=== PATIENT | female | born 1990 | race Caucasian/White ===

== ENCOUNTER 2016-12-27 16:44 | Emergency (ER) | payer OTHER ==
[~2016-12-27] VITALS: Ht 167.6 cm; Wt 74.8 kg
[~2016-12-27 16:44] MED LIST: BACTRIM DS 8001 TA1 PO; FLAGYL500 MG PO; FLINTSTONES1 CTB OR; MACROBID 100MG100 MG PO; MOTRIN400 MG PO; NAPROSYN 500MG500 MG PO; NOMEDS *; PERCOCET 5/3251 EACH PO; TUMS 400MG TAB400 MG OR; TYLENOL ES500 MG OR
[2016-12-27] MEDS ORDERED: KEFLEX 500MG.500 MG PO (17:30)
[2016-12-27] MEDS ORDERED: PREDNISONE10 M1 PO (17:31)
--- NOTE | 2016-12-27 17:32 | [facility]gent [facility] Report ---
History of Present Issue Date/Time Seen by Provider 12/27/16 1712 Visit Reason Pt arrived:Walked Presenting Problem:PT C/O SORE THROAT, SIMMS, AND BILATERAL EAR PAIN Location if Accident: Onset of symptoms date/time:/ or onset unknown for:MEDICAL HX UNKNOWN Have you (or family members/close friends) recently traveled outside the [place]? N If Yes, where/when: Have you had exposure to infectious disease within the past month? TB? Other? Specify: Patient presents with c/o sore throat, headache and chills that started 3-4 days ago. Denies recent exposure to known ill persons. Has been taking ibuprofen without relief. Hx: recurrent strep throat and VSD. States that she gets strep throat often but usually tests negative; the ENT doctor does not want to remove her tonsils due to the VSD. Her symptoms are the same this time as they usually are. Source patient Exam Limitations no limitations ALLERGIES Coded Allergies: latex (Intermediate, I-RASH 02/14/15) Penicillins (02/14/15) cefaclor (From [facility]) (02/14/15) History Medical History General CAD? No Angina: Yes [place]: No Hypertension? No Hyperlipidemia? No CHF? No DVT? No PE? No COPD? No Asthma? No Anemia? No GERD? No Gastric ulcers? No GI Bleed? No Hernia? No Thyroid Problems? No Hypothyroidism? No CVA? No Seizures? No Diabetes? No Renal Insuffiency? No UTI? No Stones? No BPH? No GB Disease: No Nephritic Syndrome? No Asplenia? No Hepatitis? No Sickle Cell Disease? No Arthritis? No Migraines? No Cataracts? No Glaucoma? No MRSA? No HIV? No TB? No Anxiety? No Depression? No Cancer? No More? No Immunization HX DT/Tetanus 1-4 YRS Flu NEVER Pneumonia NEVER Surgical Hx Previous Surgery?Y WISDOM TEETH TUBAL Social History Smoking Hx Smoker: Never Smoker Tobacco: No Alcohol Alcohol: No Review of Systems All Other Systems Reviewed and Negative Constitutional chills, denies fever (not measured) Eyes denies drainage ENT ear pain (bilateral ear pressure), throat pain, throat swelling. denies: nose congestion. Respiratory denies cough, denies shortness of breath, denies stridor, denies wheezing Cardiovascular denies chest pain, denies palpitations Gastrointestinal denies abdominal pain, denies diarrhea, denies nausea, denies other Skin denies no symptoms reported Physical Exam Vital Signs Vital Signs Date Time Temp Pulse Resp B/P Pulse O2 O2 Flow FiO2 Ox Delivery Rate 12/27 1739 98.6 84 20 140/84 100 12/27 1738 98.6 84 20 140/84 100 12/27 1652 98.6 84 20 140/84 100 General Appearance normal appearance, WD/WN, no apparent distress, fatigued Eye Exam - bilateral eye normal exam, bilateral eye PERRL Ear, Nose, Throat bilateral TMs intact, dull andersen without drainage; pharynx moderately erythematous with tonsillar swelling 2+; scant amount of exudate noted Neck normal inspection, full range of motion, bilateral anterior cervical adenopathy Respiratory Status Yes: trachea midline, chest symmetrical. No: respiratory distress. Lung Sounds bilateral: normal breath sounds. Cardiovascular normal exam, regular rate/rhythm, no peripheral edema, murmur Neurologic alert, normal exam, no motor/sensory deficits, oriented x 3 Mental status normal mood/affect Skin intact, normal color, warm/dry Medical Decision Making LABS/Meds/Orders Pt receiving controlled substance in ED? No Results/Orders Laboratory Tests 12/27/16 1655: Group A Strep Screen NOT DETECTED Orders Procedure Date/time Status [facility] STREP SCREEN 12/27 1654 Complete Departure Departure Time of Disposition 172 Disposition DC Home or Self Care(routine) Clinical Impression Primary Impression: ST (sore throat) Condition STABLE Referrals Juan Ramon Cantrell MD (Family) Patient Instructions DI for Pharyngitis/Tonsillopharyngitis -- Child Additional Instructions Your rapid strep test is negative; due to your symptoms and clinical presentation you are being treated with an antibiotic. Discussed adverse effects of cephalexin. Increase fluids, salt water gargles, and consume soft foods. Do not share food, drinks or untensils with others; change toothbrush as directed. If symptoms persist or worsen follow-up with PCP for further evaluation. Patient verbalizes understanding. Discharge Counseling Counseled pt/family regarding diagnosis, test results, medications/RX, home care, follow up needs Prescriptions Current Visit Scripts CEPHALEXIN (Keflex 500MG Capsule) 500 MG PO BID #20 CAP take 1 capsule twice daily for 10 days Prednisone 10 MG PO DAILY #21 TAB take as directed for 6 days at 2040
[2016-12-27 17:39] VITALS: BP 140/84
--- OUTSIDE RECORDS SUMMARY | 2016-12-28 20:41 | External Medical Summary Rpt | CCD ---
Author Author , SELAM Organization [employer] Address Unknown Phone [email or web address] Care Team Providers Care Linux Network Systems Administrator Name Role Phone DANIA ALBARRAN, Unavailable Unavailable DANIA ALBARRAN [facility], Unavailable Unavailable [facility] NG MARISOL, NG Unavailable Unavailable MARISOL NG MARISOL, NG Unavailable Unavailable MARISOL CARLOTA NG J, Unavailable Unavailable CARLOTA NG [facility] Unavailable Unavailable [place], [facility] Unavailable Unavailable [facility], [facility] Unavailable Unavailable LAB, [facility] OF Unavailable Unavailable [facility] Unavailable Unavailable [facility] Unavailable [place] [place] MIRTA YASIR, Unavailable Unavailable MIRTA YASIR MIRTA YASIR, Unavailable Unavailable MIRTA YASIR FALLUJI POLLY, FALLUJI Unavailable Unavailable POLLY JOSE ANTONIO ALEKSANDR, JOSE ANTONIO Unavailable Unavailable ALEKSANDR HARPEL HUBERT, HARPEL Unavailable Unavailable HUBERT HARPEL HUBERT, HARPEL Unavailable Unavailable HUBERT HARPEL, JERRI R, Unavailable Unavailable HARPEL, JERRI R [facility], [facility] LEO PERRY, Unavailable Unavailable LEO PERRY [facility] Unavailable Unavailable [facility], [facility], Unavailable Unavailable [facility] AMALIA CRISOSTOMO, Unavailable Unavailable AMALIA CRISOSTOMO [facility] KAM RANGEL B, Unavailable Unavailable KAM RANGEL EMMETT P, Unavailable Unavailable VANI SEXTON MORAN WIL Unavailable Unavailable [facility], Unavailable Unavailable [facility] Unavailable Unavailable LAB, [facility] Unavailable Unavailable LAB, [facility]Y [facility] LAB BOB COVARRUBIAS, Unavailable Unavailable GUADALUPE MORALES JR, Unavailable Unavailable GUADALUPE POOL [facility] Unavailable Unavailable CLINIC, [facility] Unavailable Unavailable OF [place], [facility] OF Dilia GALARZA, BRENDA, Tru Unavailable Dilia Rice Purpose Continuity of Care Document - 03-28-2008 through 2016 Problems Code Diagnosis DOS Provider Status V242 ROUTINE 05-24-2011 PATHOLOGY & CYTOLOGY FOLLOW-UP LAB V7231 ROUTINE 05-24-2011 HERNANDEZ DAMON GYNECOLOGIC AL EXAMINATION 462 ACUTE 05-21-2011 MIRTA PHARYNGITIS YASIR 4660 ACUTE 05-21-2011 MIRTA BRONCHITIS YASIR V252 STERILIZATI 04-12-2011 [facility] ON ANESTH OF THE BLUE 650 NORMAL 04-11-2011 NG MARISOL DELIVERY 11610 OTH&UNS CRD 04-11-2011 HERNANDEZ MARISOL ENTANGL W/O COMPRS COMP L&D DELIV V270 OUTCOME OF 04-11-2011 HERNANDEZ MARISOL DELIVERY SINGLE LIVEBORN V221 SUPERVISION 04-09-2011 HERNANDEZ DAMON OF OTHER NORMAL 76661 THREATENED 03-29-2011 [facility] LABOR INC ANTEPARTUM 26121 OTHER 03-29-2011 HARPEL HUBERT THREATENED LABOR, ANTEPARTUM 89718 DECR 03-24-2011 HERNANDEZ MARISOL MOVMNTS MGMT MOTH ANTPRTM COND/COMP 73257 OTHER 03-14-2011 [facility]IF[facility] COMPLICATIO INC N ANTEPARTUM 7840 HEADACHE 03-14-2011 [facility] 5990 URINARY 01-18-2011 [facility] INFECTION LA SITE NOT SPECIFIED 591 HYDRONEPHRO 12-29-2010 [facility] SIS PHYSICIAN GROUP PCC 01171 HEMATURIA 12-29-2010 [facility] UNSPECIFIED PHYSICIAN GROUP PCC V2889 OTHER 12-29-2010 [facility] ASS SCREENING 7851 PALPITATION 12-13-2010 [facility] CLINIC V283 ENCOUNTER 12-06-2010 WOMEN' ROUTINE HEALTH SCREEN CLINIC OF MALFORMATIO [place] N ULTRASONIC 54714 CHEST PAIN 11-16-2010 [facility] UNSPECIFIED [facility] INC 7454 VENTRICULAR 11-12-2010 [facility] SEPTAL PHYSICIANS DEFECT GROUP 03904 SHORTNESS 11-12-2010 [facility] OF [facility] INC V2509 OT GENERAL 11-02-2008 [facility]OMEN'S HEALTH CNSL&ADVICE CLINIC OF OSITO GARCIA MANAGEMENT [place] [facility] 86301 MATERNAL 09-26-2008 WOMEN'S MENTAL D/O HEALTH CLINIC OF COND/COMPLI [place] CATION PLL 57019 TRANSIENT 09-11-2008 WOMEN'S HYPERTENSIO HEALTH N OF CLINIC OF [place] W/DELIVERY PLL 28416 FIRST-DEGRE 09-11-2008 WOMEN'S E PERINEAL HEALTH LACERATION CLINIC OF WITH [place] DELIVERY [facility] 62565 MILD OR 09-10-2008 WOMEN'S UNSPECIFIED HEALTH CLINIC OF PRE-ECLAMPS [place] IA PLL ANTEPARTUM 17871 POOR 09-06-2008 WOMEN'S GROWTH MGMT HEALTH MOTH CLINIC OF ANTPRTM [place] COND/COMP [facility] V220 SUPERVISION 08-31-2008 COMBINED OF NORMAL PHYSICIANS FIRST LAB 1123 CANDIDIASIS 07-26-2008 A Dwayne GUTIERREZ OF SKIN [facility] AND NAILS 08261 DIARRHEA 07-26-2008 A Dwayne GUTIERREZ MD [facility] 6929 CONTACT 07-12-2008 JUAN CARLOS, DERMATITIS& KAM B OTHER ECZEMA DUE UNSPEC CAUSE 39335 TOXIC 07-12-2008 JUAN CARLOS, EFFECT OF KAM B LATEX 98962 DYSFUNCTION 06-28-2008 Dilia MURILLO [facility] EUSTACHIAN TUBE 46825 MATERNAL 06-15-2008 [facility] DIAGNOSTICC CV ENTER DIS-COMPLI PC/P-UNS EOC 36025 MATERNAL 06-15-2008 [facility]ITAL [facility] V2389 SUPERVISION 06-15-2008 OF OTHER DIAGNOSTICC HIGH-RISK ENTER 49004 SPOTTING 06-08-2008 WOMEN'S COMP HEALTH CLINIC OF ANTEPARTUM [place] COND/COMP [facility] 6160 CERVICITIS 05-25-2008 PATHOLOGY & AND CY[place]Y [place]ERV[place] 20619 PAP SMER 05-25-2008 WOMEN'S CERV W/LW HEALTH GRADE CLINIC OF SQUAMOUS [place] INTRAEPITH [facility] LES V222 05-25-2008 [facility]'S [facility] INCIDENTAL CLINIC OF [place] [facility] 72190 PLANTAR 05-24-2008 Dilia MACDONALD MD PSC 3970 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[facility]US[facility] 4240 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 40290 OTH CURRENT 05-18-2008 [facility] MAT CONDS [facility]IF[facility]L [facility] E ELSW [facility] 16031 PREMATURE 05-18-2008 [facility] RUPTURE [facility] ANTEPARTUM 05769 MATERNAL 05-18-2008 [facility] HYPOTENSION [facility]OME [facility]P ANTEPARTUM 4619 ACUTE 05-16-2008 A Dwayne GUTIERREZ SINUSITIS, PSC UNSPECIFIED 616 INFLAMMATOR 04-06-2008 [facility] Y DISEASE [facility] CERVIX INC VAGINA AND VULVA 6259 UNSPEC 04-06-2008 [facility] W[facility] GENITAL ORGANS 56866 INFECTIONS 04-06-2008 [facility] OF [facility] GENITOURINA INC RY TRACT ANTEPARTUM 9224 CONTUSION 03-28-2008 A Dwayne GUTIERREZ OF GENITAL MD PSC ORGANS Medications Na ND Rx Da Fi Fi Am Da Di Ph RX Ph St me C No te ll ll ou ys ag ar # ys at rm s nt no ma ic us Or Da si cy ia de te s n re d HI 00 10 10 5 30 30 EA 24 CL Ac OM 03 -1 -[address] 53 AR ti ET 21 SI 41 KE ve RI 71 20 20 DE UM 10 11 11 DE 1 PH RE 20 AR K 0 MA J MG CY CA OF PS UL CY E NT HI AN A TE 51 10 10 3 20 3 EA 24 CL Ac RC 67 -0 -[address] 36 AR ti ON SI 54 KE ve AZ 30 20 20 DE OL 20 11 11 DE E 0 PH RE 0. AR K 8% MA J CY CR EA OF M CY NT HI AN A FL 00 09 09 1 1. 1 EA 24 CL Ac UC 17 -2 -[address] 17 AR ti ON 25 0- 0- 0 SI 15 KE ve AZ 41 20 20 DE OL 27 11 11 DE E 9 PH RE 15 AR K 0 MA J MG CY TA OF BL ET CY NT HI AN A FE 64 09 09 11 30 30 EA 23 CL Ac RR 37 -0 -[address] 96 AR ti OU 60 6- 6- 00 SI 08 KE ve S 80 20 20 DE [place] 91 11 11 DE LF 0 PH RE AT AR K E MA J 32 CY 5 MG OF TA CY BL NT ET HI AN A FL 59 08 08 00 35 5 EA 13 MC Ac UC 76 -1 -[address] 84 KE ti ON SI 62 AR ve AZ 02 20 20 DE E OL 90 09 09 JR E 1 PH 10 AR WI MA LL MG CY IA /M M L OF F [place] CY SP NT HI AN A [place] 60 08 08 00 12 24 EA [address] 43 -1 -[address] 80 SS ti AT 20 1- 7- 00 SI 89 ON ve IN 53 20 20 0 DE [address] 10 0 PH EP 0, AR HE 00 MA N 0 CY A UN IT OF /M CY L NT [place] HI SP AN A [place] 60 07 08 00 60 7 EA [address] 43 -2 -[address] 66 AR ti AT 20 9- 3- 00 SI 03 KE ve IN 53 20 20 DE 76 09 09 DE 10 0 PH RE 0, AR K 00 MA J 0 CY UN IT OF /M CY L NT [place] HI SP AN A FL 00 07 07 00 30 30 EA 13 CL Ac UO 78 -1 -[address] 49 AR ti XE 12 4- 0- 00 SI 07 KE ve TI 82 20 20 DE NE 30 09 09 DE 1 PH RE HC AR K L MA J 10 CY MG OF CY CA NT PS HI UL AN E A 00 06 07 00 20 4 EA 13 CL Ac 05 -3 -[address] 32 AR ti 44 0- 6- 00 SI 94 KE ve 65 20 20 DE 02 09 09 DE 9 PH RE AR K MA J CY OF CY NT HI AN A 49 06 07 00 40 8 EA 13 CL Ac 88 -3 -[address] 32 AR ti 40 0- 6- 00 SI 95 KE ve 77 20 20 DE 70 09 09 DE 1 PH RE AR K MA J CY OF CY NT HI AN A NI 00 05 06 00 20 10 EA 12 SIMMS Ac TR 18 -1 -[address] 77 RP ti OF 50 7- 4- 00 SI 42 EL ve UR 12 20 20 DE AN 20 09 09 GE TO 1 PH RA IN AR LD MA R MO CY NO -M OF CR CY NT 10 HI 0 AN MG A 00 05 06 00 20 4 EA 12 SIMMS Ac 05 -1 -[address] 77 RP ti 44 7- 4- 00 SI 43 EL ve 65 20 20 DE 02 09 09 GE 5 PH RA AR LD MA R CY OF CY NT HI AN A [place] 00 05 06 00 30 4 EA [address] 16 -2 -[address] 81 SH ti AT 80 0- 4- 00 SI 84 ER ve IN 05 20 20 DE 43 09 09 RI 10 0 PH CH 0, AR AR 00 MA D 0 CY UN IT OF /G CY M NT CR HI EA AN M A TE 51 03 03 00 20 3 EA 11 CL Ac RC 67 -1 -[address] 84 AR ti ON 21 00 SI 50 KE ve AZ 30 20 20 DE OL 20 09 09 DE E 0 PH RE 0. AR K 8% MA J CY CR EA OF M CY NT HI AN A AZ 00 03 03 00 6. 6 EA 11 CL Ac IT 09 -0 -[address] 70 AR ti HR 37 2- 2- 0 SI 23 KE ve OM 14 20 20 DE YC 61 09 09 DE IN 8 PH RE AR K 25 MA J 0 CY MG OF TA CY BL NT ET HI AN A 65 02 02 00 30 30 EA 11 CL Ac 16 -1 -[address] 43 AR ti 20 1 6- 00 SI 71 KE ve 40 20 20 DE 61 09 09 DE 1 PH RE AR K MA J CY OF CY NT HI AN A 64 02 02 00 5. 1 EA 11 CL Ac 01 -1 -[address] 43 AR ti 10 1- 6- 9 SI 70 KE ve 00 20 20 DE 10 09 09 DE 8 PH RE AR K MA J CY OF CY NT HI AN A Procedures Procedure DOS Code Location Performer Comment CYTP C/V 21551 PATHOLOGY PICKLESIM AUTO THIN 2 & ER JR MARCI LYR CYTOLOGY PREPJ SCR LAB MNL RESCR PHYS IAADIADOO 68459 MIRTA MIRTA 2 YASIR YASIR INFLUENZA ANES IPER 16411 [facility] JOSE ANTONIO LWR ABD 2 ANESTH ALEKSANDR W/LAPS OF THE TUBAL BLUE LIGATION/ TRANSECT LIG/TRNSX 70622 HERNANDEZ Yuan FLP 2 MARISOL MARISOL TUBE ABDL/VAG POSTPARTU M SPX OTH 6639 [facility] BILATERAL 2 [facility] INC INC DESTRUC/O CCLUSION FALLOPIAN TUBES VAGINAL 41478 HERNANDEZ NG DELIVERY 2 MARISOL MARISOL ONLY W/POSTPAR DAYAN CARE OTHER 7359 [facility] MANUALLY 2 [facility] ASSISTED INC INC DELIVERY NEURAXIAL 93446 [facility] [place] MARLA LABOR 2 ANESTH ANALG/ANE OF THE S PLND BLUE VAGINAL DELIVERY CULTURE 98513 [facility] BACTERIAL 2 [facility] INC INC QUANTTATI VE COLONY COUNT URINE CULTURE 92619 [facility] BCT 2 [facility] ISOL&PRSM INC INC PTV ID ISOLATE EA URINE OBSERVATI 91846 KANDICE WOODSON ON/INPATI 2 [facility] 55 MINUTES SUSCEPTIB 86110 [facility] LTY STDY 2 [facility] ANTIMICRB INC INC IAL MICRO/AGA R DILUTJ URNLS DIP 89946 [facility] 2 [facility] STICK/TAB INC INC LET REAGENT AUTO MICROSCOP Y 44558 [facility] NONSTRESS 2 [facility] TEST INC INC 28173 [facility] NONSTRESS 2 [facility] TEST INC INC URNLS DIP 66801 [facility] K[facility]UR 2 [facility] STICK/TAB INC [place] [address] [facility] INFUSION 2 [facility] HYDRATION INC INC INITIAL 31 MIN-1 HOUR INJECTION J2405 [facility] 2 [facility] ONDANSETR INC INC ON HCL PER 1 MG NONINVASI 46561 [facility] VE 2 [facility] EAR/PULSE INC INC OXIMETRY SINGLE DETER THERAPEUT 81480 [facility] IC 2 [facility] INJECTION INC INC IV PUSH EACH NEW DRUG 11519 HERNANDEZ NG BIOPHYSIC 2 MARISOL [facility] AL PROFILE W/O NON-STRES S TESTING DOPPLER 35865 NG NG VELOCIMET 2 MARISOL MARISOL RY UMBILICAL ARTERY [place] PREG 48946 NG NG UTERUS 2 MARISOL MAR[facility] REAL TIME W/IMAGE DCMTN TRANSVAG 94311 NG NG NONSTRESS 2 MARISOL MARISOL TEST 08954 NG NG NONSTRESS 2 MARISOL MAR[facility]OL TEST DOPPLER 19205 NG NG VELOCIMET 2 MARISOL MARISOL RY UMBILICAL ARTERY US PREG 57553 NG NG UTERUS 2 MARISOL MARISOL REAL TIME W/IMAGE DCMTN TRANSVAG CUL BACT 42965 COMBINED COMBINED XCPT 2 PHYSICIAN PHYSICIAN URINE S LA S LA BLOOD/STO OL AEROBIC ISOL 69792 HERNANDEZ NG BIOPHYSIC 2 MAR[facility] AL PROFILE W/O NON-STRES S TESTING 95857 HERNANDEZ NG NONSTRESS 1 [facility] TEST FIBRIN 11273 [facility] DGRADJ 1 [facility] PRODUCTS INC INC D-DIMER QUAL/SEMI TOM 26523 [facility] NONSTRESS 1 [facility] TEST INC INC URNLS DIP 96112 [facility] 1 [facility] STICK/TAB INC INC LET REAGENT AUTO MICROSCOP Y FIBRINOGE 12430 [facility] N 1 [facility] ACTIVITY INC INC PROTHROMB 61730 [facility] IN TIME 1 [facility] INC INC BLOOD 42402 [facility]INCENT PENAON COUNT 1 [facility] COMPLETE INC INC AUTO&AUTO DIFRNTL WBC TRANSFERA 44465 [facility] SE 1 [facility] ASPARTATE INC INC AMINO AST SGOT TRANSFERA 90321 VINCENT VINCENT SE 1 [facility] ALANINE INC INC AMINO ALT SGPT OBSERVATI 48401 JERRI WOODSON ON/INPATI 1 KANDICE [facility] CARE 55 MINUTES BASIC 64274 VINCENT VINCENT METABOLIC 1 [facility] PANEL INC INC CALCIUM TOTAL THROMBOPL 92185 [facility] ASTIN 1 [facility] TIME INC INC PARTIAL PLASMA/[place] [address] [facility] BLOOD/URI 1 [facility] C ACID INC INC CULTURE 31449 [facility] BACTERIAL 1 [facility] INC INC QUANTTATI VE COLONY COUNT URINE DOPPLER 48682 HERNANDEZ NG VELOCIMET 1 MARISOL MAR[facility] RY UMBILICAL ARTERY 09596 HERNANDEZ NG BIOPHYSIC 1 [facility] AL PROFILE W/O NON-STRES S TESTING US PREG 66192 HERNANDEZ NG UTERUS 1 [facility] REAL TIME W/IMAGE DCMTN TRANSVAG US PREG 29758 NG NG UTERUS 1 MAR[facility] REAL TIME W/IMAGE DCMTN TRANSVAG 62457 NG NG BIOPHYSIC 1 [facility] AL PROFILE W/O NON-STRES S TESTING DOPPLER 93753 NG NG VELOCIMET 1 [facility] RY UMBILICAL ARTERY 60005 NG NG BIOPHYSIC 1 [facility] AL PROFILE W/O NON-STRES S TESTING US PREG 73383 NG NG UTERUS 1 [facility] REAL TIME W/IMAGE DCMTN TRANSVAG 30475 NG NG BIOPHYSIC 1 [facility] AL PROFILE W/O NON-STRES S TESTING US PREG 17058 NG NG UTERUS 1 [facility] REAL TIME W/IMAGE DCMTN TRANSVAG DOPPLER 10430 NG NG VELOCIMET 1 [facility] RY UMBILICAL ARTERY DOPPLER 69181 NG NG VELOCIMET 1 MAR[facility] MAR[place] RY UMBILICAL ARTERY US PREG 95097 NG NG UTERUS 1 [facility] REAL TIME W/IMAGE DCMTN TRANSVAG FTL 58272 [facility] FIBRONECT 1 [facility] IN INC INC CERVICOVA G SECRETION S SEMI-TOM 14121 NG NG BIOPHYSIC 1 MAR[facility] AL PROFILE W/O NON-STRES S TESTING [place] PREG 02781 WOMEN'S NG UTERUS 1 [facility] REAL TIME CLINIC OF W/IMAGE [place] DCMTN TRANSVAG 44820 WOMEN'S NG BIOPHYSIC 1 [facility] AL CLINIC OF PROFILE [place] NON-STRES S TESTING DOPPLER 74119 WOMEN'S NG VELOCIMET 1 [facility] RY CLINIC OF UMBILICAL [place] ARTERY DOPPLER 24523 NG NG VELOCIMET 1 [facility] RY UMBILICAL ARTERY 00182 NG NG BIOPHYSIC 1 [facility] AL PROFILE W/O NON-STRES S TESTING US PREG 51333 NG NG UTERUS 1 [facility] REAL TIME W/IMAGE DCMTN TRANSVAG GLUCOSE 92256 HERNANDEZ NG TOLERANCE 1 [facility] TEST GTT 3 SPECIMENS CULTURE 76584 COMBINED COMBINED BACTERIAL 1 PHYSICIAN PHYSICIAN S LA S LA QUANTTATI VE COLONY COUNT URINE DOPPLER 14051 HERNANDEZ NG VELOCIMET 1 [facility] RY UMBILICAL ARTERY US PREG 34579 HERNANDEZ NG UTERUS 1 [facility] REAL TIME W/IMAGE DCMTN TRANSVAG 13003 HERNANDEZ NG BIOPHYSIC 1 [facility] AL PROFILE NON-STRES S TESTING US PREG 18795 WOMEN'S HERNANDEZ UTERUS 1 [facility] REAL TIME CLINIC OF W/IMAGE [place] DCMTN TRANSVAG 03992 WOMEN'S HERNANDEZ NONSTRESS 1 [facility] TEST CLINIC OF [place] US PREG 57590 WOMEN'S HERNANDEZ UTERUS 1 [facility] REAL TIME CLINIC OF W/IMAGE [place] DCMTN TRANSVAG THERAPEUT 60093 [facility] IC 1 [facility] PROPHYLAC INC INC TIC/DX INJECTION SUBQ/IM 69988 [facility] NONSTRESS 1 [facility] TEST INC INC URNLS DIP 97301 [facility] 1 [facility] STICK/TAB INC INC LET REAGENT AUTO MICROSCOP Y FTL 08043 [facility] FIBRONECT 1 [facility] IN INC INC CERVICOVA G SECRETION S SEMI-TOM OBSERVATI 43423 [facility] HARPEL ON/INPATI 1 PHYSICIAN [facility] PCC C[place] [address] [place] [address] VINCENT VINCENT 1 [facility] UTERUS INC INC LIMITED 1/> [place] [address] [facility] RETROPERI 1 [facility] TONEAL INC INC REAL TIME W/IMAGE COMPLETE ECG 53281 [facility] ROUTINE 1 ROSENDO MATIAS ECG CARDIOLOG W/LEAST Y CLINIC 12 LDS W/I&R CUL BACT 67474 COMBINED COMBINED XCPT 1 PHYSICIAN PHYSICIAN URINE S LA S LA BLOOD/STO OL AEROBIC ISOL US PREG 13977 [facility]OMEN'S HERNANDEZ UTERUS 1 [facility] AFTER 1ST CLINIC OF TRIMEST [place] GESTATION ECHO 57968 [facility] TTHRC R-T 1 [facility] 2D INC INC W/WOM-MOD E COMPL SPEC&COLR D XTRNL ECG 94691 [facility] & 48 HR 1 [facility] RECORDING INC INC INSERTION 82128 [facility]'S NG, 9 [facility] IM[facility] CL[facility] OF LE CONTRACEP [place] TIVE [facility] CAPSULES THERAPEUT 42923 WOMEN'S NG, IC 9 [facility] PROPHYLAC CLINIC OF TIC/DX INJECTION [place] SUBQ/IM [facility] ETONOGEST J7307 WOMEN'S NG, REL 9 [facility] CNTRACPT CLINIC OF IMPL SYS INCL IMPL [place] & SPL [facility] URINE 46443 [facility]EN'S NG, 9 [facility] TEST [facility]IN[facility] OF VISUAL COLOR [place] CMPRSN [facility] METHS CYTP C/V 02698 PATHOLOGY PATHOLOGY AUTO THIN 9 & & LYR CYTOLOGY CYTOLOGY PREPJ SCR LAB LAB MNL RESCR PHYS VAGINAL 39286 WOMEN'S NG, DELIVERY 9 [facility] ONLY CLINIC OF W/POSTPAR DAYAN CARE [place] [facility] REPAIR OF 7569 [facility] OTHER 9 [facility] CURRENT INC INC OBSTETRIC LACERATIO N NEURAXIAL 25898 [facility] 9 ANESTH SHERWIN F ANALG/ANE OF THE S PLND [place] VAGINAL DELIVERY INITIAL 88087 WOMEN'S NG, OBSERVATI 9 [facility] [place] CLINIC OF CARE/DAY 50 [place] [address] WOMEN'S NG, 9 [facility] UTERUS CLINIC OF LIMITED 1/> [place] FETUSES [facility] 34461 WOMEN'S HERNANDEZ, BIOPHYSIC 9 [facility] OF PROFILE W/O [place] NON-STRES [facility] S TESTING DOPPLER 77072 WOMEN'S HERNANDEZ, VELOCIMET 9 [facility] RY CLINIC OF UMBILICAL ARTERY [place] [facility] OBSERVATI 74197 BRET THOMPSON/INELISABETH 9 KANDICE [facility]ARE 55 MINUTES CULTURE 52716 [facility] BACTERIAL 9 [facility] INC INC QUANTTATI VE COLONY COUNT URINE URNLS DIP 56085 [facility] 9 [facility] STICK/TAB INC INC LET REAGENT [place] MICROSCOP Y 68750 [facility] NONSTRESS 9 [facility] TEST INC INC CUL BACT 20511 COMBINED COMBINED XCPT 9 PHYSICIAN PHYSICIAN URINE S LAB S LAB BLOOD/STO OL AEROBIC ISOL DOPPLER 34976 WOMEN'S HERNANDEZ, VELOCIMET 9 [facility] [place] [facility] RY [facility]IN[facility] OF UMBILICAL ARTERY [place] [facility] 57792 WOMEN'S HERNANDEZ, BIOPHYSIC 9 [facility] [place] [facility] AL CLINIC OF PROFILE W/O [place] NON-STRES [facility] S TESTING [place] PREG 13493 WOMEN'S HERNANDEZ, UTERUS 9 [facility] [place] [facility] REAL TIME CLINIC OF F/U TRNSABDL [place] PER FETUS [facility] OBSERVATI 19147 BRET THOMPSON/INELISABETH 9 [facility] 55 MINUTES URNLS DIP 88188 [facility]UR 9 [facility] STICK/TAB INC INC LET REAGENT AUTO MICROSCOP Y 71089 WOMEN'S NG, NONSTRESS 9 [facility] [place] [facility] TEST [facility]INIC OF [place] [facility] [address] WOMEN'S NG, NONSTRESS 9 [facility] [place] [facility] TEST CLINIC OF [place] [facility] SMR PRIM 58708 Dilia JUAREZ SRC WET 9 BRENDA Rice [facility] NFCT AGT CULTURE 00475 [facility] BACTERIAL 9 [facility] INC INC QUANTTATI VE COLONY COUNT URINE OBSERVATI 77448 BRET THOMPSON/INELISABETH 9 [facility] 55 MINUTES FTL 87749 [facility] FIBRONECT 9 [facility] IN INC INC CERVICOVA G SECRETION S SEMI-TOM 77482 [facility] NONSTRESS 9 [facility] TEST INC INC URNLS DIP 26312 [facility]UR 9 [facility] STICK/TAB INC INC LET REAGENT AUTO MICROSCOP Y 13956 WOMEN'S NG, BIOPHYSIC 9 [facility] [place] Yuan AL CLINIC OF PROFILE NON-STRES [place] S TESTING [facility] [place] 17049 WOMEN'S NG, UTERUS 9 [facility] [place] [facility] REAL TIME CLINIC OF F/U TRNSABDL [place] PER FETUS [facility] DOPPLER 88125 WOMEN'S NG, VELOCIMET 9 [facility] RY [facility] OF UMBILICAL ARTERY [facility] PERQ TSTS 27675 JUAN CARLOS RANGEL, 9 KAM B KAM B SEQL&INCR L RX/BIOLOG IC/VNM IMMT RXN GLUCOSE 81745 WOMEN'S NG, POST 9 [facility] [place] J GLUCOSE CLIN[facility] OF DOSE [facility] COLLECTIO 09848 WOMEN'S NG, N 9 [facility] [place] CAP[facility] OF BLOOD SPECIMEN [facility] GLUCOSE 39244 WOMEN'S NG, TOLERANCE [facility] TEST GTT [facility]IN[facility] 3 [facility]ENS [facility] ECHO 91457 [place], 9 DANIA Miguel CARDIOVAS DIAGNOSTI C W/WO CCENTER M-MODE RECORDING [place] PREG 96710 [place], UTERUS 9 DANIA Miguel REAL TIME DIAGNOSTI F/U CCENTER TRNSABDL PER [place]ET[place] PREG 50993 WOMEN'S NG, UTERUS [facility] J REAL TIME CLINIC OF F/U TRNSABDL [place] PER FETUS [facility] 09535 WOMEN'S NG, BIOPHYSIC 9 [facility] AL [facility]IN[facility] OF PROFILE W/O [place] NON-STRES [facility] S TESTING COLPOSCOP 58516 WOMEN'S NG, Y CERVIX [facility] UPPER/ADJ CLINIC OF ACENT VAGINA [facility] [place] [address] PATHOLOGY PATHOLOGY SURG 9 & & PATHOLOGY CYTOLOGY CYTOLOGY LAB LAB GROSS&SUGAR ROSCOPIC EXAM [place] PREG 97176 WOMEN'S NG, UTERUS [facility] AFTER 1ST CLINIC OF TRIMEST [place] [facility] [place] 42212 CENTRAL CENTRAL UTERUS 9 [facility]UD[facility]IST [facility] REAL TIME HOSP HOSP W/IMAGE DCMTN TRANSVAG [place] PREG 52809 [place], UTERUS 9 DANIA R W/DETAIL DIAGNOSTI CCENTER SHASTA 1ST GESTATION ECHO 39158 [facility] TTC R-T 9 ORTH, 2D CARDIOLOG AMALIA W/WOM-MOD Y E COMPL CONSULTAN SPEC&COLR T D SPHERE V2100 PRINCESS HERNANDEZNES, SINGLE 9 [facility] VISION PLANO +/- 4.00 PER LENS OPHTH 45317 PRINCESSDilia PERRY MEDICAL 9 [facility] A XM&EVAL COMPRE NEW PT 1/> VST RPR&REFIT 32069 PRINCESSDilia PERRY G 9 [facility] SPECTACLE S EXCEPT APHAKIA FRAMES V2020 PRINCESS PERRY, PURCHASES 9 [facility] [place] PREG 49542 WOMEN'S NG, UTERUS [facility] AFTER [facility]ST [facility] [place] [facility] ALPHA-FET 43158 [facility] K[facility] OPROTEIN 9 [facility] [place] [address] [facility] ESTRIOL 9 [facility] INC INC GONADOTRO 57577 [facility]UR PIN 9 [facility] CHORIONIC INC INC QUANTITAT RACHELL URNLS DIP 54459 [facility] KAUR 9 [facility] STICK/TAB INC INC LET REAGENT AUTO MICROSCOP Y IADNA 41492 [facility] NEISSERIA 9 [facility] INC INC GONORRHOE [place] 66268 VINAY DARSHAN, UTERUS 9 MEDICAL VANI Cox REAL TIME IMAGING W/IMAGE ASSOCIATE DCMTN S TRANSVAG IADNA 97819 [facility] K[facility]UR CHLAMYDIA 9 [facility] INC INC TRACHOMAT IS AMPLIFIED PROBE TQ Encounters Encounter Start End Date Code Location Performer Type Date OFFICE 95532 MIRTA MIRTA OUTPATIEN 2 2 [facility] 2 [facility] [place] 22988 HERNANDEZ JAIMESE OUTPATIEN 2 2 [facility] VIS[facility] 15 MINUTES OFFICE 82863 NG NG OUTPATIEN 2 2 [facility] 2 [facility] T OFFICE 58572 NG NG OUTPATIEN 1 1 [facility] T VISIT 15 MINUTES [facility] 1 1 [facility] T OFFICE 97560 [facility] MINUT[facility] OFFICE 02341 NG NG OUTPATIEN 1 1 [facility] V[facility]IT 5 MINUTES OFFICE 93223 [facility] [place] MIN[facility] OFFICE 12518 [facility] [place] MIN[facility] - 1 1 [facility] T OFFICE 95264 [facility] 1 [facility] [place] MIN[facility] 1 [facility] T OFFICE 43596 [facility] 15 [place] MIN[facility]ES OFFICE 90681 [facility] OUTPATIEN 1 1 ROSENDO MATIAS T VISIT CARDIOLOG 25 Y CLINIC MINUTES OFFICE 08806 [facility] 15 [place] MINUTES OFFICE 05120 [facility] 15 [place] MINUTES OFFICE 81650 [facility] 1 [facility] 15 [place] MINUTES [facility] 1 1 [facility] OFFICE 05798 [facility] CONSULTAT 1 1 PHYSICIAN POLLY BARAHONA NEW/[facility] PATIENT 60 MIN OFFICE 31971 [facility] 1 1 [facility] 15 [place] MINUTES OFFICE 33912 [facility] 1 1 [facility] 15 [place] MINUTES OFFICE 24017 [facility] 9 9 [facility] OF 25 MINUTES [facility] OFFICE 21824 [facility] 9 9 [facility] OF 15 MINUTES [facility]INCENT - 9 9 [facility]ENT - 9 9 [facility] OFFICE 16589 [facility] 9 9 [facility] OF 15 MINUTES [facility] OFFICE 04291 [facility], [facility] 9 9 [facility] OF 15 MINUTES [facility]INCENT - 9 9 [facility] OFFICE 95159 [facility], OUTPATIEN 9 9 [facility]IN[facility] OF 15 MINUTES [facility] VINCENT - 9 9 [facility] OFFICE 61161 [facility] OUTPATIEN 9 9 [facility] OF 15 MINUTES [facility] VINCENT - 9 9 [facility] OFFICE 45214 Dilia JUAREZ OUTPATIEN 9 9 BRENDA Rice T VISIT PSC 15 MINUTES OFFICE 26454 Dilia JUAREZPATIEN 9 9 BRENDA Metcalf VISIT PSC 15 MINUTES OFFICE 46302 [facility], [facility] 9 9 [facility] OF 15 MINUTES [facility] OFFICE 39575 JUAN CARLOS RANGEL, CONSULTAT 9 9 KAM B KAM B ION NEW/ESTAB PATIENT 60 MIN OFFICE 92746 [facility], [facility] 9 9 [facility] T [facility]IN[facility] OF 15 MINUTES [facility] OFFICE 20585 Dilia JUAREZ OUTPATIEN 9 9 BRENDA Metcalf VISIT PSC 15 MINUTES OFFICE 73743 [facility], [facility] 9 9 [facility] T [facility]IN[facility] OF 15 MINUTES [facility] OFFICE 90737 [facility], OUTPATIEN 9 9 [facility] T VISIT 5 CLINIC OF MINUTES [facility] - 9 9 [facility] OUTPATIEN [facility] VINCENT - 9 9 [facility] OFFICE 08597 Dilia JUAREZ OUTPATIEN 9 9 BRENDA Metcalf VISIT PSC 15 MINUTES [facility] - 9 9 [facility] T OFFICE 16859 Dilia JUAREZ OUTPATIEN 9 9 BRENDA Rice T VISIT PSC 15 MINUTES OFFICE 81455 [facility] OUT[facility] 9 9 [facility] OF 15 MINUTES [facility] OFFICE 23336 [facility] HERNANDE[facility] OUTPATIEN 9 9 [facility] OF 15 MINUTES [facility]INCENT - 9 9 [facility]PATI[facility] INC T OFFICE 94615 [facility] HERNANDE[facility] OUTPAT[facility]EN 9 9 [facility] T [facility] OF 15 MINUTES [facility] EMERGENCY 97513 VINCENT 9 9 [facility] DEPARTMEN INC T VISIT HIGH/URGE NT SEVERITY [facility] - 9 9 [facility] OUTPATI[facility] INC T OFFICE 70802 Dilia JUAREZ OUTPATIEN 9 9 BRENDA Rice T VISIT PSC 15 MINUTES
--- OUTSIDE RECORDS SUMMARY | 2016-12-28 20:41 | External Medical Summary Rpt | CCD ---
Author Author , SELAM Organization [employer] Address Unknown Phone [email or web address] Care Team Providers Care Microsoft Office Instructor Name Role Phone DANIA ALBARRAN, Unavailable Unavailable DANIA ALBARRAN [facility], Unavailable Unavailable [facility] NG MARISOL, NG Unavailable Unavailable MARISOL NG MARISOL, NG Unavailable Unavailable MARISOL [place] NG J, Unavailable Unavailable [place] NG [facility] Unavailable Unavailable [place], [facility] Unavailable Unavailable [place], [facility] Unavailable Unavailable LAB, [facility] OF [facility]available Unavailable [facility] Unavailable Unavailable [facility] Unavailable [place], [facility] [place] MIRTA YASIR, Unavailable Unavailable [...] INC LEO PERRY, Unavailable Unavailable LEO PERRY [facility] Unavailable Unavailable P[facility], [facility], Unavailable Unavailable [facility] AMALIA CRISOSTOMO, Unavailable Unavailable AMALIA CRISOSTOMO [facility] KAM RANGEL B, Unavailable Unavailable KAM RANGEL EMMETT P, Unavailable Unavailable VANI SEXTON MORAN WIL Unavailable Unavailable [facility], Unavailable Unavailable [facility] Unavailable Unavailable LAB, [facility] Unavailable Unavailable LAB, PATHOLOGY & CYTOLOGY LAB BOB COVARRUBIAS, Unavailable Unavailable GUADALUPE MORALES JR, Unavailable Unavailable GUADALUPE POOL [facility] Unavailable Unavailable CLINIC, [facility] Unavailable Unavailable OF [place], [facility] OF Dilia GALARZA, BRENDA, Tru Unavailable Dilia Rice Purpose Continuity of Care Document - 03-28-2008 through 2016 Problems Code Diagnosis DOS Provider Status V242 ROUTINE 05-24-2011 PATHOLOGY & CYTOLOGY FOLLOW-UP LAB V7231 ROUTINE 05-24-2011 HERNANDEZ DAMON GYNECOLOGIC AL EXAMINATION 462 ACUTE 05-21-2011 MIRTA PHARYNGITIS YASIR 4660 ACUTE 05-21-2011 MIRTA BRONCHITIS YASIR V252 STERILIZATI 04-12-2011 [facility] ON ANESTH OF THE BLUE 650 NORMAL 04-11-2011 NG MARISOL DELIVERY 81514 OTH&UNS CRD 04-11-2011 HERNANDEZ MARISOL ENTANGL W/O COMPRS COMP L&D DELIV V270 OUTCOME OF 04-11-2011 HERNANDEZ MARISOL DELIVERY SINGLE LIVEBORN V221 SUPERVISION 04-09-2011 HERNANDEZ DAMON OF OTHER NORMAL 78811 THREATENED 03-29-2011 [facility]URE [facility] LABOR INC ANTEPARTUM 26585 OTHER 03-29-2011 HARPEL HUBERT THREATENED LABOR, ANTEPARTUM 76508 DECR 03-24-2011 HERNANDEZ MARISOL MOVMNTS MGMT MOTH ANTPRTM COND/COMP 84996 OTHER 03-14-2011 [facility] SPECIFED [facility] COMPLICATIO INC N ANTEPARTUM 7840 HEADACHE 03-14-2011 [facility] INC 5990 URINARY 01-18-2011 [facility] INFECTION LA SITE NOT SPECIFIED 591 HYDRONEPHRO 12-29-2010 [facility] SIS PHYSICIAN GROUP PCC 35883 HEMATURIA 12-29-2010 [facility] UNSPECIFIED PHYSICIAN GROUP PCC V2889 OTHER 12-29-2010 [place] [facility] SCREENING 7851 PALPITATION 12-13-2010 [facility] CLINIC V283 ENCOUNTER 12-06-2010 WOMEN' ROUTINE HEALTH SCREEN CLINIC OF MALFORMATIO [place] N ULTRASONIC 19472 CHEST PAIN 11-16-2010 [facility] UNSPECIFIED [facility] INC 7454 VENTRICULAR 11-12-2010 [facility] SEPTAL PHYSICIANS DEFECT GROUP 57014 SHORTNESS 11-12-2010 [facility] OF BREATH [facility] INC V2509 OT GENERAL 11-02-2008 WOMEN'S HEALTH CNSL&ADVICE CLINIC OF OSITO GARCIA MANAGEMENT [facility] 02077 MATERNAL 09-26-2008 WOMEN'S MENTAL D/O HEALTH CLINIC OF COND/COMPLI [place] CATION PLL 28592 TRANSIENT 09-11-2008 WOMEN'S HYPERTENSIO HEALTH N OF CLINIC OF [place] W/DELIVERY PLL 46769 FIRST-DEGRE 09-11-2008 WOMEN'S E PERINEAL HEALTH LACERATION CLINIC OF WITH [place] DELIVERY [facility] 57908 MILD OR 09-10-2008 WOMEN'S UNSPECIFIED HEALTH CLINIC OF PRE-ECLAMPS [place] IA PLL ANTEPARTUM 35366 POOR 09-06-2008 WOMEN'S GROWTH MGMT HEALTH MOTH CLINIC OF ANTPRTM [place] COND/COMP [facility] V220 SUPERVISION 08-31-2008 COMBINED OF NORMAL PHYSICIANS FIRST LAB 1123 CANDIDIASIS 07-26-2008 A Dwayne GUTIERREZ OF SKIN [facility] AND NAILS 46941 DIARRHEA 07-26-2008 A Dwayne GUTIERREZ MD [facility] 6929 CONTACT 07-12-2008 JUAN CARLOS, DERMATITIS& KAM B OTHER ECZEMA DUE UNSPEC CAUSE 71418 TOXIC 07-12-2008 JUAN CARLOS, EFFECT OF KAM B LATEX 37576 DYSFUNCTION 06-28-2008 Dilia MURILLO [facility] EUSTACHIAN TUBE 04699 MATERNAL 06-15-2008 [facility] DIAGNOSTICC CV ENTER DIS-COMPLI PC/P-UNS EOC 12662 MATERNAL 06-15-2008 [facility] DISORDERS [facility] V2389 SUPERVISION 06-15-2008 OF OTHER DIAGNOSTICC HIGH-RISK ENTER 71329 SPOTTING 06-08-2008 WOMEN'S COMP HEALTH CLINIC OF ANTEPARTUM [place] [facility] 6160 CERVICITIS 05-25-2008 PATHOLOGY & AND CYTOLOGY ENDOCERVICI LAB TIS 73099 PAP SMER 05-25-2008 WOMEN'S CERV W/LW HEALTH GRADE CLINIC OF SQUAMOUS [place] INTRAEPITH [facility] LES V222 05-25-2008 WOMEN'S [facility] INCIDENTAL CLINIC OF [place] [facility] 34202 PLANTAR 05-24-2008 Dilia MACDONALD MD PSC 3970 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[facility] 4240 MITRAL 05-18-2008 [facility]ORD[facility] 54740 OTH CURRENT 05-18-2008 [facility] MAT CONDS [facility] E ELSW [facility] 17471 PREMATURE 05-18-2008 [facility] RUPTURE [facility] ANTEPARTUM 52473 MATERNAL 05-18-2008 [facility] HYPOTENSION [facility] ANTEPARTUM 4619 ACUTE 05-16-2008 A Dwayne GUTIERREZ SINUSITIS, PSC UNSPECIFIED 616 INFLAMMATOR 04-06-2008 [facility] Y DISEASE [facility] OF CERVIX INC VAGINA AND VULVA 6259 UNSPEC 04-06-2008 [facility] W/[facility] GENITAL ORGANS 03589 INFECTIONS 04-06-2008 [facility]ENT OF [facility] GENITOURINA INC RY TRACT ANTEPARTUM 9224 CONTUSION 03-28-2008 A Dwayne GUTIERREZ OF GENITAL MD PSC ORGANS Medications Na ND Rx Da Fi Fi Am Da Di Ph RX Ph St me C No te ll ll ou ys ag ar # ys at rm s nt no ma ic us Or Da si cy ia de te s n re d WV 00 10 10 5 30 30 EA [...] ST 84 KE ti ON SI 62 MA ve AZ 02 20 20 DE E [...] DOS Code Location Performer Comment CYTP C/V 41928 PATHOLOGY PICKLESIM AUTO THIN 2 & ER JR MARCI LYR CYTOLOGY PREPJ SCR LAB MNL RESCR PHYS IAADIADOO 04015 MIRTA MIRTA 2 YASIR YASIR INFLUENZA ANES IPER 85352 [facility] JOSE ANTONIO LWR ABD 2 ANESTH ALEKSANDR W/LAPS OF THE TUBAL BLUE LIGATION/ TRANSECT LIG/TRNSX 18672 HERNANDEZ Yuan FLP 2 MARISOL MARISOL TUBE ABDL/VAG POSTPARTU M SPX OTH 6639 [facility] KAUR BILATERAL 2 [facility] INC INC DESTRUC/O CCLUSION FALLOPIAN TUBES VAGINAL 93018 HERNANDEZ NG DELIVERY 2 MARISOL MARISOL ONLY W/POSTPAR DAYAN CARE OTHER 7359 [facility] KAUR MANUALLY 2 [facility] ASSISTED INC INC DELIVERY NEURAXIAL 19537 [facility] [place] MARLA LABOR 2 ANESTH ANALG/ANE OF THE S PLND BLUE VAGINAL DELIVERY CULTURE 60320 [facility]UR BACTERIAL 2 [facility] INC INC QUANTTATI VE COLONY COUNT URINE CULTURE 38313 [facility] BCT 2 [facility] ISOL&PRSM INC INC PTV ID ISOLATE EA URINE OBSERVATI 12731 KANDICE WOODSON ON/INPATI 2 [facility] 55 MINUTES SUSCEPTIB 37251 [facility] LTY STDY 2 [facility] ANTIMICRB INC INC IAL MICRO/AGA R DILUTJ URNLS DIP 64314 [facility] KAUR 2 [facility] STICK/TAB INC INC LET REAGENT AUTO MICROSCOP Y 53567 [facility] NONSTRESS 2 [facility] TEST INC INC 13099 [facility]ENT K[facility]UR NONSTRESS 2 [facility] TEST INC INC URNLS DIP 21759 [facility] KAUR 2 [facility] STICK/TAB INC [place] [address] [facility] INFUSION 2 [facility] HYDRATION INC INC INITIAL 31 MIN-1 HOUR INJECTION J2405 [facility]UR 2 [facility] ONDANSETR INC INC ON HCL PER 1 MG NONINVASI 07358 [facility] VE 2 [facility] EAR/PULSE INC INC OXIMETRY SINGLE DETER THERAPEUT 55795 [facility] IC 2 [facility] INJECTION INC INC IV PUSH EACH NEW DRUG 68915 HERNANDEZ NG BIOPHYSIC 2 MARISOL MAR[place] AL PROFILE W/O NON-STRES S TESTING DOPPLER 59786 NG NG VELOCIMET 2 MARISOL MARISOL RY UMBILICAL [place]ERY [place] PREG 68449 NG NG UTERUS 2 MARISOL MAR[place] REAL TIME W/IMAGE DCMTN TRANSVAG 80425 GN NG NONSTRESS 2 MARISOL MARISOL TEST 02655 NG NG NONSTRESS 2 MARISOL [place] TEST DOPPLER 53691 NG NG VELOCIMET 2 MARISOL MARISOL RY UMBILICAL ARTERY US PREG 67996 NG NG UTERUS 2 MARISOL MARIS[place] REAL TIME W/IMAGE DCMTN TRANSVAG CUL BACT 94633 COMBINED COMBINED XCPT 2 PHYSICIAN PHYSICIAN URINE S LA S LA BLOOD/STO OL AEROBIC ISOL 62577 HERNANDEZ NG BIOPHYSIC 2 MARIS[facility] [place] AL PROFILE W/O NON-STRES S TESTING 65286 HERNANDEZ NG NONSTRESS 1 MAR[facility] [place] TEST FIBRIN 99156 [facility] DGRADJ 1 [facility] PRODUCTS INC INC D-DIMER QUAL/SEMI TOM 90910 [facility] NONSTRESS 1 [facility] TEST INC INC URNLS DIP 30416 [facility] KAUR 1 [facility] STICK/TAB INC INC LET REAGENT AUTO MICROSCOP Y FIBRINOGE 05665 [facility] N 1 [facility] ACTIVITY INC INC PROTHROMB 23294 [facility]ENT KAUR IN TIME 1 [facility] INC INC BLOOD 99747 [facility]INCENT PENAON COUNT 1 [facility] COMPLETE INC INC AUTO&AUTO DIFRNTL WBC TRANSFERA 29638 [facility] SE 1 [facility] ASPARTATE INC INC AMINO AST SGOT TRANSFERA 89637 VINCENT VINCENT SE 1 [facility] ALANINE INC INC AMINO ALT SGPT OBSERVATI 99204 JERRI WOODSON ON/INPATI 1 KANDICE LAMBERT [facility] CARE 55 MINUTES BASIC 95568 VINCENT VINCENT METABOLIC 1 [facility] PANEL INC INC CALCIUM TOTAL THROMBOPL 34460 [facility] ASTIN 1 [facility] TIME INC INC PARTIAL PLASMA/[place] [address] [facility] BLOOD/URI 1 [facility] C ACID INC INC CULTURE 48232 [facility] BACTERIAL 1 [facility] INC INC QUANTTATI VE COLONY COUNT URINE DOPPLER 73788 HERNANDEZ NG VELOCIMET 1 MARISOL MARISOL RY UMBILICAL ARTERY 06854 HERNANDEZ NG BIOPHYSIC 1 MAR[facility] AL PROFILE W/O NON-STRES S TESTING US PREG 41503 HERNANDEZ NG UTERUS 1 MARIS[facility] [place] REAL TIME W/IMAGE DCMTN [place] PREG 43110 NG NG UTERUS 1 MARISOL MAR[place] REAL TIME W/IMAGE DCMTN TRANSVAG 64428 NG NG BIOPHYSIC 1 MAR[facility] [place] AL PROFILE W/O NON-STRES S TESTING DOPPLER 05537 NG NG VELOCIMET 1 MARIS[facility] MAR[place] RY UMBILICAL ARTERY 37117 NG NG BIOPHYSIC 1 MAR[facility] [place] AL PROFILE W/O NON-STRES S TESTING US PREG 53703 NG NG UTERUS 1 MARISOL MAR[facility] REAL TIME W/IMAGE DCMTN TRANSVAG 81185 NG NG BIOPHYSIC 1 MAR[facility] [place] AL PROFILE W/O NON-STRES S TESTING [place] PREG 56086 NG NG UTERUS 1 MARISOL MAR[place] REAL TIME W/IMAGE DCMTN TRANSVAG DOPPLER 70360 NG NG VELOCIMET 1 MARISOL MARISOL RY UMBILICAL ARTERY DOPPLER 07186 NG NG VELOCIMET 1 MARIS[place] MAR[place] RY UMBILICAL ARTERY US PREG 27195 NG NG UTERUS 1 MARISOL [place] REAL TIME W/IMAGE DCMTN TRANSVAG FTL 03633 [facility] FIBRONECT 1 [facility] IN INC INC CERVICOVA G SECRETION S SEMI-TOM 14104 NG NG BIOPHYSIC 1 MARISOL [place] AL PROFILE W/[place]ES [place] P[place] 42678 WOMEN'S NG UTERUS 1 [facility] REAL TIME CLINIC OF W/IMAGE [place] DCMTN TRANSVAG 48341 WOMEN'S NG BIOPHYSIC 1 [facility] [place] AL CLINIC OF PROFILE [place] NON-STRES S TESTING DOPPLER 64894 WOMEN'S NG VELOCIMET 1 [facility] [place] RY CLINIC OF UMBILICAL [place] ARTERY DOPPLER 51827 NG NG VELOCIMET 1 MAR[facility] MARISOL RY UMBILICAL ARTERY 27421 NG NG BIOPHYSIC 1 MARISOL [place] AL PROFILE W/O NON-STRES S TESTING US PREG 49187 NG NG UTERUS 1 MARISOL MAR[facility] REAL TIME W/IMAGE DCMTN TRANSVAG GLUCOSE 13299 HERNANDEZ NG TOLERANCE 1 MAR[facility] TEST GTT 3 SPECIMENS CULTURE 65914 COMBINED COMBINED BACTERIAL 1 PHYSICIAN PHYSICIAN S LA S LA QUANTTATI VE COLONY COUNT URINE DOPPLER 22490 HERNANDEZ NG VELOCIMET 1 MAR[facility] RY UMBILICAL ARTERY US PREG 96393 HERNANDEZ NG UTERUS 1 MAR[facility] [place] REAL TIME W/IMAGE DCMTN TRANSVAG 23390 HERNANDEZ NG BIOPHYSIC 1 MAR[facility] [place] AL PROFILE NON-STRES S TESTING US PREG 55358 WOMEN'S HERNANDEZ UTERUS 1 [facility] [place] REAL TIME CLINIC OF W/IMAGE [place] DCMTN TRANSVAG 11697 WOMEN'S HERNANDEZ NONSTRESS 1 [facility] [place] TEST CLINIC OF [place] US PREG 13250 WOMEN'S HERNANDEZ UTERUS 1 [facility] REAL TIME CLINIC OF W/IMAGE [place] DCMTN TRANSVAG THERAPEUT 43191 [facility] IC 1 [facility] PROPHYLAC INC INC TIC/DX INJECTION SUBQ/IM 67770 [facility] NONSTRESS 1 [facility] TEST INC INC URNLS DIP 13336 [facility] KAUR 1 [facility] STICK/TAB INC INC LET REAGENT AUTO MICROSCOP Y FTL 72374 [facility] FIBRONECT 1 [facility] IN INC INC CERVICOVA G SECRETION S SEMI-TOM OBSERVATI 78748 [facility] HARPEL ON/INPATI 1 PHYSICIAN [facility] P[place] C[place] [address] [place] [address] VINCENT VINCENT 1 [facility] UTERUS INC INC LIMITED 1/> [place] [address] VINCENT KAUR RETROPERI 1 [facility] TONEAL INC INC REAL TIME W/IMAGE COMPLETE ECG 28501 [facility] ROUTINE 1 ROSENDO MATIAS ECG CARDIOLOG W/LEAST Y CLINIC 12 LDS W/I&R CUL BACT 78423 COMBINED COMBINED XCPT 1 PHYSICIAN PHYSICIAN URINE S LA S LA BLOOD/STO OL AEROBIC ISOL US PREG 65303 WOMEN'S HERNANDEZ UTERUS 1 [facility] AFTER 1ST CLINIC OF TRIMEST [place] GESTATION ECHO 05199 [facility] K[facility]UR TTHRC R-T 1 [facility] 2D INC INC W/WOM-MOD E COMPL SPEC&COLR D XTRNL ECG 48796 [facility] K[facility]UR & 48 HR 1 [facility] RECORDING INC INC INSERTION 06548 [facility]'S NG, 9 [facility] LE CONTRACEP [place] TIVE [facility] CAPSULES THERAPEUT 28945 WOMEN'S NG, IC 9 [facility] PROPHYLAC CLINIC OF TIC/DX INJECTION [place] SUBQ/IM [facility] ETONOGEST J7307 WOMEN'S NG, REL 9 [facility] CNTRACPT CLINIC OF IMPL SYS INCL IMPL [place] & SPL [facility] URINE 99427 WOMEN'S NG, 9 [facility] TEST [facility] OF VISUAL COLOR [place] CMPRSN [facility] METHS CYTP C/V 80273 PATHOLOGY PATHOLOGY AUTO THIN 9 & & LYR CYTOLOGY CYTOLOGY PREPJ SCR LAB LAB MNL RESCR PHYS VAGINAL 16544 WOMEN'S NG, DELIVERY 9 [facility] ONLY CLINIC OF W/POSTPAR DAYAN CARE [place] [facility] REPAIR OF 7569 [facility]ENT KAUR OTHER 9 [facility] CURRENT INC INC OBSTETRIC LACERATIO N NEURAXIAL 96719 [facility] 9 ANESTH SHERWIN F ANALG/ANE OF THE S PLND [place] VAGINAL DELIVERY INITIAL 79440 WOMEN'S NG, OBSERVATI 9 [facility] [place] ON CLINIC OF CARE/DAY 50 [place] MINUTES [facility] [address] WOMEN'S NG, 9 [facility] UTERUS CLINIC OF LIMITED 1/> [place] FETUSES [facility] 93022 WOMEN'S HERNANDEZ, BIOPHYSIC 9 [facility] PROFILE W/O [place] NON-STRES [facility] S TESTING DOPPLER 33594 WOMEN'S HERNANDEZ, VELOCIMET 9 [facility] UMBILICAL ARTERY [place] [facility] OBSERVATI 69002 BRET THOMPSON/INELISABETH 9 KANDICE Miguel [facility] HOSPITAL CARE 55 MINUTES CULTURE 11897 [facility] BACTERIAL 9 [facility] INC INC QUANTTATI VE COLONY COUNT URINE URNLS DIP 65905 [facility] KAUR 9 [facility] STICK/TAB INC INC LET REAGENT AUTO MICROSCOP Y 67254 [facility] NONSTRESS 9 [facility] TEST INC INC CUL BACT 10908 COMBINED COMBINED XCPT 9 PHYSICIAN PHYSICIAN URINE S LAB S LAB BLOOD/STO OL AEROBIC ISOL DOPPLER 21136 WOMEN'S HERNANDEZ, VELOCIMET 9 [facility] [place] [facility] RY CLINIC OF UMBILICAL ARTERY [place] [facility] 41441 WOMEN'S HERNANDEZ, BIOPHYSIC 9 [facility] [place] [facility] AL CLINIC OF PROFILE W/O [place] NON-STRES [facility] [place] P[place] [address]016 WOMEN'S HERNANDEZ, UTERUS 9 [facility] [place] [facility] REAL TIME CLINIC OF F/U TRNSABDL [place] PER FETUS [facility] OBSERVATI 95798 BRET THOMPSON/INELISABETH 9 KANDICE Miguel [facility] HOSPITAL CARE 55 MINUTES URNLS DIP 40286 [facility]INCENT KAUR 9 [facility] STICK/TAB INC INC [place] Y 89533 WOMEN'S NG, NONSTRESS 9 [facility] [place] [facility] TEST CLINIC OF [place] [facility] 98533 WOMEN'S NG, NONSTRESS 9 [facility] [place] [facility] TEST CLINIC OF [place] [facility] SMR PRIM 01339 Dilia JUAREZ SRC WET 9 BRENDA Rice [facility] NFCT AGT CULTURE 09139 [facility] BACTERIAL 9 [facility] INC INC QUANTTATI VE COLONY COUNT URINE OBSERVATI 44954 BRET THOMPSON/INELISABETH 9 KANDICE LAMBERT JERRI R [facility] HOSPITAL CARE 55 MINUTES FTL 32294 [facility]INCENT [facility]UR FIBRONECT 9 [facility] IN INC INC CERVICOVA G SECRETION S SEMI-TOM 82349 [facility] K[facility]UR NONSTRESS 9 [facility] TEST INC INC URNLS DIP 28364 VINCENT KAUR 9 [facility] STICK/TAB INC INC LET REAGENT AUTO MICROSCOP Y 31865 WOMEN'S NG, BIOPHYSIC 9 [facility] [place] Yuan AL CLINIC OF PROFILE NON-STRES [place] S TESTING [facility] US PREG 70996 WOMEN'S NG, UTERUS 9 [facility] [place] J REAL TIME CLINIC OF F/U TRNSABDL [place] PER FETUS [facility] DOPPLER 34351 WOMEN'S NG, VELOCIMET 9 [facility] [place] [facility] RY CLINIC OF UMBILICAL ARTERY [facility] PERQ TSTS 06717 JUAN CARLOS RANGEL, 9 KAM B KAM B SEQL&INCR L RX/BIOLOG IC/VNM IMMT RXN GLUCOSE 55288 WOMEN'S NG, POST 9 [facility] [place] GLUCOSE CLINIC OF DOSE [facility] COLLECTIO 33278 WOMEN'S NG, N 9 [facility] [place] CAPILLARY CLINIC OF BLOOD SPECIMEN [facility] GLUCOSE 68381 WOMEN'S NG, TOLERANCE 9 [facility] [place] J TEST GTT [facility]IN[facility] ECHO 11381 ALBARRAN, 9 DANIA Miguel CARDIOVAS DIAGNOSTI C W/WO CCENTER M-[place] P[place] 80289 ALBARRAN, UTERUS 9 DANIA Miguel REAL TIME DIAGNOSTI F/U CCENTER TRNSABDL [place] PREG 66468 WOMEN'S NG, UTERUS 9 [facility] [place] J REAL TIME CLINIC OF F/U TRNSABDL [place] PER FETUS [facility] 84865 WOMEN'S NG, BIOPHYSIC 9 [facility] [place] J AL CLINIC OF PROFILE W/O [place] NON-STRES [facility] S TESTING COLPOSCOP 07345 WOMEN'S NG, Y CERVIX 9 [facility] [place] [facility] UPPER/ADJ CLINIC OF ACENT VAGINA [facility] [place] [address] PATHOLOGY PATHOLOGY SURG 9 & & PATHOLOGY CYTOLOGY CYTOLOGY LAB LAB GROSS&SUGAR ROSCOPIC [place] PREG 55019 WOMEN'S NG, UTERUS 9 [facility] [place] [facility] AFTER 1ST CLINIC OF TRIMEST [place] GESTATION [facility] US PREG 97012 [facility] UTERUS 9 [facility] REAL TIME HOSP HOSP W/IMAGE DCMTN TRANSVAG [place] PREG 99095 ALBARRAN, UTERUS 9 DANIA R W/DETAIL DIAGNOSTI CCENTER SHASTA 1ST GESTATION ECHO 50740 [facility] TTC R-T 9 ORTH, 2D CARDIOLOG AMALIA W/WOM-MOD Y E COMPL CONSULTAN SPEC&COLR T D SPHERE V2100 PRINCESS HERNANDEZNES, SINGLE 9 VISION LEO A VISION PLANO +/- 4.00 PER LENS OPHTH 83290 PRINCESSDilia PERRY MEDICAL 9 VISION LEO A XM&EVAL COMPRE NEW PT 1/> VST RPR&REFIT 56599 PRINCESSDilia PERRY G 9 VISION LEO A SPECTACLE S EXCEPT APHAKIA FRAMES V2020 PRINCESS PERRY, PURCHASES 9 VISION [place] PREG 52371 WOMEN'S NG, UTERUS 9 [facility] [place] [facility] AFTER 1ST CLINIC OF TRIMEST [place] GESTATION [facility] ALPHA-FET 37293 VINCENT KAUR OPROTEIN 9 [facility] [place] [address] VINCENT K[facility]UR ESTRIOL 9 [facility] INC INC GONADOTRO 94488 V[facility]ENT K[facility]UR PIN 9 [facility] CHORIONIC INC INC QUANTITAT RACHELL URNLS DIP 94114 [facility]INCENT [facility]UR 9 [facility] STICK/TAB INC INC LET REAGENT AUTO MICROSCOP Y IADNA 83772 [facility] NEISSERIA 9 [facility] INC INC GONORRHOE [place] T[place] PREG 32172 VINAY DARSHAN, UTERUS 9 MEDICAL VANI Cox REAL TIME IMAGING W/IMAGE ASSOCIATE DCMTN S TRANSVAG IADNA 26808 [facility] CHLAMYDIA 9 [facility] INC INC TRACHOMAT IS AMPLIFIED PROBE TQ Encounters Encounter Start End Date Code Location Performer Type Date OFFICE 35159 MIRTA MIRTA OUTPATIEN 2 2 YASIRMatthew [facility] 30 [facility]UTES [facility]ENT - 2 2 [facility] INPATIENT INC OFFICE 97874 HERNANDEZ JAIMESE OUTPATIEN 2 2 [facility] V[facility] 15 MINUTES OFFICE 93200 NG NG OUTPATIEN 2 2 [facility] 15 [facility]ES [facility] VINCENT - 2 2 [facility] OUTPATIEN [facility]ENT - 2 2 [facility] OUTPATIEN [facility] T OFFICE 89402 NG NG OUTPATIEN 1 1 [facility]IS[facility] 15 MINUTES [facility] - 1 1 [facility]PATIEN [facility] - 1 1 [facility]PATIEN INC T OFFICE 56096 [facility] 15 [place] MIN[facility] OFFICE 93401 NG NG OUTPATIEN 1 1 [facility] 5 MINUTES OFFICE 59617 [facility] 15 [place] MIN[facility] OFFICE 45786 [facility] [place] MIN[facility] - 1 1 [facility] VINCENT - 1 1 [facility]PAT[facility] T OFFICE 52013 [facility] [place] [facility] - 1 1 [facility] OUTPATIEN INC T OFFICE 48999 [facility] 15 [place] MINUTES OFFICE 37158 [facility] OUTPATIEN 1 1 [facility] T VISIT CARDIOLOG 25 Y CLINIC MINUTES OFFICE 62790 [facility] 1 [facility] 15 [place] MIN[facility]ES OFFICE 77213 [facility] 15 [place] MIN[facility] OFFICE 22672 [facility] 1 [facility] 15 [place] MIN[facility] - [facility] 1 [facility] - 1 1 [facility] OUTPATIEN [facility] OFFICE 15170 [facility] CONS[facility] 1 1 [facility] PATIENT 60 MIN OFFICE 20279 [facility] 1 1 [facility] 15 [place] MINUTES OFFICE 93454 [facility] 1 1 [facility] 15 [place] MINUTES OFFICE 69779 [facility]IEN 9 9 [facility] OF 25 MINUTES [facility] OFF[facility] 40017 [facility] OUTPATIEN 9 9 [facility] OF 15 MINUTES [facility] VINCENT - 9 9 [facility]IENT [facility] VINCENT - 9 9 [facility] OUTPATIEN [facility] OFFICE 79784 [facility] 9 9 [facility] 15 MINUTES [facility] OFF[facility] 47010 [facility], OUT[facility] 9 9 [facility] OF 15 MINUTES [facility] VINCENT - 9 9 [facility] OUT[facility] OFFICE 12571 [facility] 9 9 [facility] T VISIT CLINIC OF 15 MINUTES [facility] - 9 9 [facility] OUTPATIEN [facility] OFFICE [id number] WOMEN'S NG, OUTPATIEN 9 9 [facility] T VISIT CLINIC OF 15 MINUTES [facility] - 9 9 [facility] OUTPATIEN [facility] OFFICE [id number] Dilia JUAREZ OUTPATIEN 9 9 BRENDA Rice T VISIT [facility]SC 15 MINUTES OFFICE [id number] Dilia JUAREZPATIEN 9 9 BRENDA Metcalf VISIT PSC 15 MINUTES OFFICE [id number] WOMEN'S NG, OUTPATIEN 9 9 [facility] T VISIT CLINIC OF 15 MINUTES [facility] OFF[facility] 72293 JUAN CARLOS RANGEL, CONSULTAT 9 9 KAM B KAM B ION NEW/ESTAB PATIENT 60 MIN OFFICE [id number] WOMEN'S NG, OUTPATIEN 9 9 [facility] T VISIT CLINIC OF 15 MINUTES [facility] 82515 Dilia JUAREZ OUTPATIEN 9 9 BRENDA Metcalf VISIT PSC 15 MINUTES OFFICE 49120 WOMEN'S NG, OUTPATIEN 9 9 [facility] T VISIT CLINIC OF 15 MINUTES [facility] OFF[facility] 63509 WOMEN'S NG, OUTPATIEN 9 9 [facility] J T VISIT 5 CLINIC OF MINUTES [facility] - 9 9 [place] OUT[facility] - 9 9 [facility] OUTPATIEN [facility] OFFICE [id number] Dilia JUAREZ OUTPATIEN 9 9 BRENDA Metcalf VISIT PSC 15 MINUTES [facility] - 9 9 [facility] T OFFICE 07422 Dilia JUAREZ OUTPATIEN 9 9 BRENDA Rice T VISIT PSC 15 MINUTES OFFICE 75086 WOMEN'S HERNANDEZ OUTPATIEN 9 9 [facility] VISIT [facility] OF 15 MINUTES [facility] 71153 [facility]EN'S HERNANDEZ OUTPATIEN 9 9 [facility] T [facility]ISIT CLINIC OF 15 MINUTES [facility] - 9 9 [facility] T OFFICE 34359 WOMEN'S HERNANDEZ OUTPATIEN 9 9 [facility] T [facility]ISIT [facility]IN[facility] OF 15 MINUTES [facility] [id number] [facility]ENT 9 9 [facility] DEPARTMEN INC T VISIT HIGH/URGE NT SEVERITY [facility] - [facility] 9 [facility] T OFFICE 54015 Dilia JUAREZ OUTPATIEN 9 9 BRENDA Rice T VISIT PSC 15 MINUTES
--- OUTSIDE RECORDS SUMMARY | 2016-12-28 20:44 | External Medical Summary Rpt | CCD ---
Author Author , SELAM Organization SELAM Address Unknown Phone [email or web address] Providers Care Dye Weigher Name Role Phone DANIA ALBARRAN, Unavailable Unavailable DANIA ALBARRAN [facility], Unavailable Unavailable [facility] NG MARISOL, NG Unavailable Unavailable MARISOL NG MARISOL, NG Unavailable Unavailable MARISOL CARLOTA NG J, Unavailable Unavailable TEZ NGK J [facility] Unavailable Unavailable [facility], [facility] Unavailable Unavailable [facility], [facility] Unavailable Unavailable LAB, [facility] OF Unavailable Unavailable [facility] [place] SATNAM HUAN, Unavailable Unavailable SATNAM HUAN [facility] Unavailable Unavailable [facility] Unavailable [place] MIRAT YASIR, Unavailable Unavailable MIRTA YASIR MIRTA YASIR, Unavailable Unavailable MIRTA YASIR FALLUJI POLLY, FALLUJI Unavailable Unavailable POLLY JOSE ANTONIO ALEKSANDR, JOSE ANTONIO Unavailable Unavailable ALEKSANDR HARPEL HUBERT, HARPEL Unavailable Unavailable HUBERT HARPEL HUBERT, HARPEL Unavailable Unavailable HUEBRT HARPEL, JERRI R, Unavailable Unavailable HARPEL, JERRI R [facility], [facility] LEO PERRY, Unavailable Unavailable LEO PERRY [facility] Unavailable Unavailable P[facility], [facility] P[facility], Unavailable Unavailable [facility] Unavailable Unavailable [facility], [facility] JUAN CARLOS, KAM B, Unavailable Unavailable KAM RANGEL B VANI SEXTON, Unavailable Unavailable VANI SEXTON MORAN WIL Unavailable Unavailable [facility], Unavailable Unavailable [facility] Unavailable Unavailable LAB, [facility] Unavailable Unavailable LAB, [facility]Y [facility] CYTOLOGY LAB BOB COVARRUBIAS, Unavailable Unavailable GUADALUPE MORALES JR, Unavailable Unavailable GUADALUPE POOL [facility] Unavailable Unavailable [facility], [facility] CLINIC [facility] Unavailable Unavailable OF [place], [facility]AR[facility] OF Dilia GALARZA, BRENDA, Unavailable Unavailable A C Purpose Continuity of Care Document - 03-28-2008 through 2016 Problems Code Diagnosis DOS Provider Status V242 ROUTINE 05-24-2011 PATHOLOGY & CYTOLOGY FOLLOW-UP LAB V7231 ROUTINE 05-24-2011 HERNANDEZ DAMON GYNECOLOGIC AL EXAMINATION 462 ACUTE 05-21-2011 MIRTA PHARYNGITIS YASIR 4660 ACUTE 05-21-2011 MIRTA BRONCHITIS YASIR V252 STERILIZATI 04-12-2011 [facility] ON [facility] 650 NORMAL 04-11-2011 HERNANDEZ MARISOL DELIVERY 09613 OTH&UNS CRD 04-11-2011 HERNANDEZ DAMON ENTANGL W/O COMPRS COMP L&D DELIV V270 OUTCOME OF 04-11-2011 HERNANDEZ DAMON DELIVERY SINGLE LIVEBORN V221 SUPERVISION 04-09-2011 HERNANDEZ DAMON OF OTHER NORMAL 42052 THREATENED 03-29-2011 [facility] LABOR INC ANTEPARTUM 78229 OTHER 03-29-2011 HARPEL HUBERT THREATENED LABOR, ANTEPARTUM 25905 DECR 03-24-2011 HERNANDEZ MARISOL MOVMNTS MGMT MOTH ANTPRTM COND/COMP 94191 OTHER 03-14-2011 [facility]CIFED [facility] COMPLICATIO INC N ANTEPARTUM 7840 HEADACHE 03-14-2011 [facility] INC 5990 URINARY 01-18-2011 [facility] INFECTION LA SITE NOT SPECIFIED 591 HYDRONEPHRO 12-29-2010 [facility] SIS PHYSICIAN GROUP PCC 23860 HEMATURIA 12-29-2010 [facility] UNSPECIFIED PHYSICIAN GROUP PCC V2889 OTHER 12-29-2010 [place] [facility] SCREENING 7851 PALPITATION 12-13-2010 [facility] CL[facility] V283 ENCOUNTER 12-06-2010 [facility] ROUTINE HEALTH SCREEN CLINIC OF MALFORMATIO [place] N ULTRASONIC 36029 CHEST PAIN 11-16-2010 [facility]PECIFIED [facility] INC 7454 VENTRICULAR 11-12-2010 [facility] SEPTAL PHYSICIANS DEFECT GROUP 66149 SHORTNESS 11-12-2010 [facility] OF BREATH [facility] INC V2509 OT GENERAL 11-02-2008 [facility] CNSL&ADVICE CLINIC OF CONTRACEPT [place] MANAGEMENT PLLC 65666 MATERNAL 09-26-2008 [facility]OMEN[facility] MENTAL D/O HEALTH CLINIC OF COND/COMPLI [place] CATION PLLC 01244 TRANSIENT 09-11-2008 [facility]EN'[facility] HYPERTENSIO HEALTH N OF CLINIC OF [place] W/DELIVERY PLL 13922 FIRST-DEGRE 09-11-2008 WOMEN'S E PERINEAL HEALTH LACERATION CLINIC OF WITH [place] DELIVERY [facility] 04962 MILD OR 09-10-2008 WOMEN'S UNSPECIFIED HEALTH CLINIC OF PRE-ECLAMPS [place] IA [facility] ANTEPARTUM 07430 POOR 09-06-2008 [facility]EN'S GROWTH MGMT HEALTH MOTH CLINIC OF ANTPR [place] COND/COMP [facility] V220 SUPERVISION 08-31-2008 [facility] OF NORMAL PHYSICIANS FIRST LAB 1123 CANDIDIASIS 07-26-2008 A Dwayne GUTIERREZ OF SKIN PSC AND NAILS 92866 DIARRHEA 07-26-2008 A Dwayne GUTIERREZ MD PSC 6929 CONTACT 07-12-2008 JUAN CARLOS, DERMATITIS& KAM B OTHER ECZEMA DUE UNSPEC CAUSE 21890 TOXIC 07-12-2008 JUAN CARLOS, EFFECT OF KAM B LATEX 35828 DYSFUNCTION 06-28-2008 A Dwayne MURILLO [facility] EUSTACHIAN TUBE 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 95617 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 [facility] V2389 SUPERVISION 06-15-2008 OF OTHER DIAGNOSTICC HIGH-RISK ENTER 58483 SPOTTING 06-08-2008 WOMEN'S COMP HEALTH CLINIC OF ANTEPARTUM [place] COND/COMP [facility] 6160 CERVICITIS 05-25-2008 PATHOLOGY & AND CYTOLOGY ENDOCERVICI LAB TIS 91356 PAP SMER 05-25-2008 WOMEN'S CERV W/LW [facility] LES V222 05-25-2008 [facility]I [facility] INCIDENTAL CLINIC OF [place] [facility] 83242 PLANTAR 05-24-2008 A Dwayne MACDONALD MD PSC 3970 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[facility]USPID [facility] 4240 MITRAL 05-18-2008 [facility] DISORDERS [facility]OSP 50091 OTH CURRENT 05-18-2008 [facility] MAT CONDS [facility]IF[facility]L [facility]OS[facility] E ELSW [facility] 44155 PREMATURE 05-18-2008 [facility] RUPTURE [facility] ANTEPARTUM 10859 MATERNAL 05-18-2008 [facility] HYPOTENSION [facility] ANTEPARTUM 4619 ACUTE 05-16-2008 A Dwayne GUTIERREZ SINUSITIS, PSC UNSPECIFIED 616 INFLAMMATOR 04-06-2008 [facility] Y DISEASE [facility] OF CERVIX INC VAGINA AND VULVA 6259 UNSPEC 04-06-2008 [facility] [facility] W/[facility] GENITAL ORGANS 46194 INFECTIONS 04-06-2008 [facility] OF [facility] GENITOURINA INC RY TRACT ANTEPARTUM 9224 CONTUSION 03-28-2008 A Dwayne GUTIERREZ OF GENITAL PSC ORGANS Medications Na ND Rx Da Fi Fi Am Da Di Ph RX Ph St me C No te ll ll ou ys ag ar # ys at rm s nt no ma ic us Or Da si cy ia de te s n re d GA 00 10 10 5 30 30 EA [...] ST 84 KE ti ON SI 62 SD ve AZ 02 20 20 DE E [...] NT PS HI UL AN E A 49 06 07 00 40 8 EA 13 CL Ac 88 -3 -[address] 32 AR ti 40 0- 6- 00 SI 95 KE ve 77 20 20 DE 70 09 09 DE 1 PH RE AR K MA J CY OF CY NT HI AN A 00 06 07 00 20 4 [...] .0 ST 84 AR ti ON 21 6 00 SI 50 KE ve AZ 30 [...] CY BL NT ET HI AN A 64 02 02 00 5. 1 EA 11 CL Ac 01 -1 -[address] 43 AR ti 10 1- 6- 9 SI 70 KE ve 00 20 20 DE 10 09 09 DE 8 PH RE AR K MA J CY OF CY NT HI AN A 65 02 02 00 30 30 EA 11 CL Ac 16 -1 -[address] 43 AR ti 20 1- 6- 00 SI 71 KE ve 40 20 20 DE 61 09 09 DE 1 PH RE AR K MA J CY OF CY NT HI AN A Procedures Procedure DOS Code Location Performer Comment CYTP C/V 05111 PATHOLOGY PICKLESIM AUTO THIN 2 & ER JR MARCI LYR CYTOLOGY PREPJ SCR LAB MNL RESCR PHYS IAADIADOO 05196 MIRTA MIRTA 2 YASIR YASIR INFLUENZA LIG/TRNSX 89134 HERNANDEZ Yuan FLP 2 MARISOL MARISOL TUBE ABDL/VAG POSTPARTU M SPX ANES IPER 13591 [facility] JOSE ANTONIO LWR ABD 2 ANESTH ALEKSANDR W/LAPS OF THE TUBAL BLUE LIGATION/ TRANSECT OTH 6639 [facility] BILATERAL 2 [facility] INC INC DESTRUC/O CCLUSION FALLOPIAN TUBES OTHER 7359 [facility] MANUALLY 2 [facility] ASSISTED INC INC DELIVERY VAGINAL 44996 HERNANDEZ NG DELIVERY 2 MARISOL MARISOL ONLY W/POSTPAR DAYAN CARE NEURAXIAL 29411 [facility] LILIAN MARLA LABOR 2 ANESTH ANALG/ANE OF THE S PLND BLUE VAGINAL DELIVERY CULTURE 59769 [facility] BACTERIAL 2 [facility] INC INC QUANTTATI VE COLONY COUNT URINE CULTURE 12040 [facility] BCT 2 [facility] ISOL&PRSM INC INC PTV ID ISOLATE EA URINE OBSERVATI 96394 HARPEL HARPEL ON/INPATI 2 [facility] 55 MINUTES 16414 [facility] NONSTRESS 2 [facility] TEST INC INC SUSCEPTIB 52792 [facility] LTY STDY 2 [facility] ANTIMICRB INC INC IAL MICRO/AGA R DILUTJ URNLS DIP 58956 [facility] 2 [facility] STICK/TAB INC INC LET REAGENT AUTO MICROSCOP Y URNLS DIP 98776 [facility] 2 [facility] STICK/TAB INC INC LET REAGENT AUTO MICROSCOP Y NONINVASI 24979 [facility] VE 2 [facility] EAR/PULSE INC INC OXIMETRY SINGLE DETER THERAPEUT 42232 [facility] IC 2 [facility] INJECTION INC INC IV PUSH EACH NEW DRUG 64284 [facility] NONSTRESS 2 [facility] TEST INC INC INJECTION J2405 V[facility] 2 [facility] ONDANSETR INC [place] ON H[place] 1 [place] [address] [facility] INFUSION 2 [facility] HYDRATION INC INC INITIAL 31 MIN-1 HOUR 81405 HERNANDEZ NG BIOPHYSIC 2 MARISOL [place] AL PROFILE W/O NON-STRES S TESTING US PREG 09879 HERNANDEZ NG UTERUS 2 MAR[facility] MAR[place] REAL TIME W/IMAGE DCMTN TRANSVAG DOPPLER 70911 HERNANDEZ NG VELOCIMET 2 MARIS[facility] MARISOL RY UMBILICAL ARTERY 49672 NG NG NONSTRESS 2 MARISOL MAR[place] TEST 61649 NG NG NONSTRESS 2 [facility] TEST 65514 HERNANDEZ NG BIOPHYSIC 2 MAR[facility] [place] AL PROFILE W/O NON-STRES S TESTING CUL BACT 69729 COMBINED COMBINED XCPT 2 PHYSICIAN PHYSICIAN URINE S LA S LA BLOOD/STO OL AEROBIC ISOL US PREG 98121 HERNANDEZ NG UTERUS 2 MAR[facility] MAR[place] REAL TIME W/IMAGE DCMTN TRANSVAG DOPPLER 10702 HERNANDEZ NG VELOCIMET 2 [facility] [place] RY UMBILICAL ARTERY 29405 HERNANDEZ NG NONSTRESS 1 [facility] [place] TEST FIBRINOGE 76342 [facility] N 1 [facility] ACTIVITY INC INC PROTHROMB 44309 [facility] IN TIME 1 [facility] INC INC 49823 V[facility] NONSTRESS 1 [facility] TEST INC INC OBSERVATI 84936 JERRI WOODSON ON/INPATI 1 [facility] CARE 55 MINUTES BASIC 05781 [facility] METABOLIC 1 [facility] [place] [address] [facility] BLOOD/URI 1 [facility] C ACID INC INC THROMBOPL 35378 [facility] ASTIN 1 [facility] TIME INC INC PARTIAL PLASMA/WH OLE BLOOD CULTURE 28251 [facility] BACTERIAL 1 [facility] INC INC QUANTTATI VE COLONY COUNT URINE FIBRIN 11344 [facility] DGRADJ 1 [facility] PRODUCTS INC INC D-DIMER QUAL/SEMI TOM BLOOD 31818 [facility] COUNT 1 [facility] COMPLETE INC INC AUTO&AUTO DIFRNTL WBC URNLS DIP 84943 [facility] 1 [facility] STICK/TAB INC INC LET REAGENT AUTO MICROSCOP Y TRANSFERA 15385 [facility] SE 1 [facility] ASPARTATE INC INC AMINO AST SGOT TRANSFERA 84964 [facility] SE 1 [facility] ALANINE INC INC AMINO ALT SGPT DOPPLER 95832 HERNANDEZ NG VELOCIMET 1 [facility] MARIS[place] RY UMBILICAL ARTERY US PREG 78292 HERNANDEZ NG UTERUS 1 [facility] REAL TIME W/IMAGE DCMTN TRANSVAG 83427 HERNANDEZ NG BIOPHYSIC 1 [facility] [place] AL PROFILE W/O NON-STRES S TESTING 07686 HERNANDEZ NG BIOPHYSIC 1 [facility] [place] AL PROFILE W/O NON-STRES S TESTING US PREG 98755 NG NG UTERUS 1 MAR[facility] REAL TIME W/IMAGE DCMTN TRANSVAG DOPPLER 52394 NG NG VELOCIMET 1 [facility] [place] RY UMBILICAL ARTERY US PREG 39994 NG NG UTERUS 1 [facility] REAL TIME W/IMAGE DCMTN TRANSVAG 41803 NG NG BIOPHYSIC 1 [facility] AL PROFILE W/O NON-STRES S TESTING 32276 NG NG BIOPHYSIC 1 [facility] [place] AL PROFILE W/O NON-STRES S TESTING US PREG 91628 NG NG UTERUS 1 [facility] REAL TIME W/IMAGE DCMTN TRANSVAG DOPPLER 71057 NG NG VELOCIMET 1 [facility] RY UMBILICAL ARTERY DOPPLER 97860 NG NG VELOCIMET 1 MAR[facility] MAR[place] RY UMBILICAL ARTERY US PREG 61518 NG NG UTERUS 1 [facility] REAL TIME W/IMAGE DCMTN TRANSVAG 13825 NG NG BIOPHYSIC 1 [facility] [place] AL PROFILE W/O NON-STRES S TESTING FTL 14503 [facility] FIBRONECT 1 [facility] IN INC INC CERVICOVA G SECRETION S SEMI-TOM US PREG 26388 [facility]OMEN'S NG UTERUS 1 [facility] REAL TIME CLINIC OF W/IMAGE [place] DCMTN TRANSVAG DOPPLER 25098 WOMEN'S NG VELOCIMET 1 [facility] RY CLINIC OF UMBILICAL [place] ARTERY 90110 WOMEN'S NG BIOPHYSIC 1 [facility] AL CLINIC OF PROFILE [place] NON-STRES S TESTING 21363 NG NG BIOPHYSIC 1 [facility] AL PROFILE W/O NON-STRES S TESTING DOPPLER 23924 NG NG VELOCIMET 1 [facility] [place] RY UMBILICAL ARTERY US PREG 62207 NG NG UTERUS 1 [facility] REAL TIME W/IMAGE DCMTN TRANSVAG GLUCOSE 39250 NG NG TOLERANCE 1 [facility] TEST GTT 3 SPECIMENS CULTURE 43531 COMBINED COMBINED BACTERIAL 1 PHYSICIAN PHYSICIAN S LA S LA QUANTTATI VE COLONY COUNT URINE 65681 HERNANDEZ NG BIOPHYSIC 1 [facility] [place] AL PROFILE NON-STRES S TESTING DOPPLER 14561 HERNANDEZ NG VELOCIMET 1 [facility] [place] RY UMBILICAL ARTERY US PREG 18619 HERNANDEZ NG UTERUS 1 [facility] REAL TIME W/IMAGE DCMTN TRANSVAG 88236 [facility]EN'S HERNANDEZ NONSTRESS 1 [facility] TEST CLINIC OF [place] US PREG 10140 [facility]'S HERNANDEZ UTERUS 1 [facility] REAL TIME CLINIC OF W/IMAGE [place] DCMTN TRANSVAG US PREG 41745 WOMEN'S HERNANDEZ UTERUS 1 [facility] REAL TIME CLINIC OF W/IMAGE [place] DCMTN TRANSVAG THERAPEUT 48689 [facility] IC 1 [facility] PROPHYLAC INC INC TIC/DX INJECTION SUBQ/IM URNLS DIP 57034 [facility] 1 [facility] STICK/TAB INC INC LET REAGENT AUTO MICROSCOP Y FTL 67516 V[facility] FIBRONECT 1 [facility] IN INC INC [place]ERV[place] [address] [place] SATNAM RETROPERI 1 MEDICAL HUAN TONEAL IMAGING REAL TIME ASS W/IMAGE COMPLETE 43502 [facility] NONSTRESS 1 [facility] TEST INC INC OBSERVATI 75746 [facility] HARPEL ON/INPATI [address] [facility] PCC C[place] [address] [place] [address] [place] SATNAM 1 MEDICAL HUAN UTERUS IMAGING LIMITED ASS 1/> FETUSES ECG 12659 [facility] ROUTINE 1 ROSENDO MATIAS ECG CARDIOLOG W/LEAST Y CLINIC 12 LDS W/I&R CUL BACT 51850 COMBINED COMBINED XCPT 1 PHYSICIAN PHYSICIAN URINE S LA S LA BLOOD/STO OL AEROBIC ISOL US PREG 40967 [facility] HERNANDEZ UTERUS 1 [facility] AFTER 1ST CLINIC OF TRIMEST [place] GESTATION ECHO 61906 [facility] TTHRC R-T 1 [facility] 2D INC INC W/WOM-MOD E COMPL SPEC&COLR D XTRNL ECG 02323 [facility] & 48 HR 1 [facility] RECORDING INC INC ETONOGEST J7307 WOMEN'S NG, REL 9 [facility] CNTRACPT CLINIC OF IMPL SYS INCL IMPL [place] & SPL PLLC THERAPEUT 02670 WOMEN'S NG, IC 9 [facility] PROPHYLAC CLINIC OF TIC/DX INJECTION [place] SUBQ/IM PLLC INSERTION 21866 WOMEN'S NG, 9 [facility] IMPLANTAB CLINIC OF LE CONTRACEP [place] TIVE [facility] CAPSULES URINE 95726 WOMEN'S NG, 9 [facility] TEST CLINIC OF VISUAL COLOR [place] CMPRSN [facility] METHS CYTP C/V 37020 PATHOLOGY PATHOLOGY AUTO THIN 9 & & LYR CYTOLOGY CYTOLOGY PREPJ SCR LAB LAB MNL RESCR PHYS NEURAXIAL 41252 [facility] [place], LABOR 9 ANESTH SHERWIN F ANALG/ANE OF THE S PLND [place]UE[place] VAGINAL DELIVERY VAGINAL 65702 WOMEN'S NG, DELIVERY 9 [facility] ONLY CLINIC OF W/POSTPAR DAYAN CARE [place] [facility] REPAIR OF 7569 [facility] OTHER 9 [facility] CURRENT INC INC OBSTETRIC LACERATIO N INITIAL 40295 WOMEN'S NG, OBSERVATI 9 [facility] ON CLINIC OF CARE/DAY 50 [place] MINUTES [facility] DOPPLER 94171 [facility]OMEN'S HERNANDEZ, VELOCIMET 9 [facility] RY CLINIC OF UMBILICAL ARTERY [place] [facility] 60704 [facility]OMEN'S HERNANDEZ, BIOPHYSIC 9 [facility] AL CLINIC OF PROFILE W/O [place] NON-STRES [facility] [address] WOMEN'S NG, 9 [facility] UTERUS CLINIC OF LIMITED 1/> [place] FETUSES [facility] OBSERVATI 38921 JERRI WOODSON, ON/INPATI 9 [facility] CARE 55 MINUTES 33624 [facility] NONSTRESS 9 [facility] TEST INC INC CULTURE 31701 [facility] BACTERIAL 9 [facility] INC INC QUANTTATI VE COLONY COUNT URINE URNLS DIP 38274 [facility] 9 [facility] STICK/TAB INC INC LET REAGENT AUTO MICROSCOP Y US PREG 94410 [facility] NG, UTERUS 9 [facility] REAL TIME CLINIC OF F/U TRNSABDL [place] PER FETUS [facility] DOPPLER 46071 WOMEN'S NG, VELOCIMET 9 [facility] RY CLINIC OF UMBILICAL ARTERY [place] [facility] CUL BACT 06377 COMBINED COMBINED XCPT 9 PHYSICIAN PHYSICIAN URINE S LAB S LAB BLOOD/STO OL AEROBIC ISOL 38497 [facility]EN'S NG, BIOPHYSIC 9 [facility] AL CLINIC OF PROFILE W/O [place] NON-STRES [facility] S TESTING OBSERVATI 82757 JERRI WOODSON, ON/INELISABETH 9 [facility] LAM[facility]ERT [facility] CARE 55 MINUTES URNLS DIP 40326 [facility]UR 9 [facility] STICK/TAB INC INC LET REAGENT AUTO MICROSCOP Y 87164 [facility]OMEN'S NG, NONSTRESS 9 [facility] J TEST CLINIC OF [place] [facility] 17799 [facility] NONSTRESS 9 [facility] TEST INC INC SMR PRIM 03600 Dilia GUTIERREZ, Dilia SRC WET 9 BRENDA Rice [facility] NFCT AGT CULTURE 41282 [facility] BACTERIAL 9 [facility] INC INC QUANTTATI VE COLONY COUNT URINE 18453 V[facility] NONSTRESS 9 [facility] TEST INC INC OBSERVATI 41008 BRET THOMPSON/INELISABETH 9 [facility]ICE [facility]ERT [facility] CARE 55 MINUTES URNLS DIP 99481 [facility]AUR 9 [facility] STICK/TAB INC INC LET REAGENT AUTO MICROSCOP Y FTL 99946 [facility] FIBRONECT 9 [facility] IN INC INC CERVICOVA G SECRETION S SEMI-TOM [place] PREG 98733 [facility]OMEN'S NG, UTERUS 9 [facility] J REAL TIME CLINIC OF F/U TRNSABDL [place] PER FETUS [facility] DOPPLER 74734 WOMEN'S NG, VELOCIMET 9 [facility] RY CLINIC OF UMBILICAL ARTERY [place] [facility] 32868 WOMEN'S HERNANDEZ, BIOPHYSIC 9 [facility] J AL CLINIC OF PROFILE NON-STRES [place] S TESTING [facility] PERQ TSTS 60349 JUAN CARLOS, JUAN CARLOS, 9 KAM B KAM B SEQL&INCR L RX/BIOLOG IC/VNM IMMT RXN GLUCOSE 78585 [facility]EN'[facility] NG, POST 9 [facility] GLUCOSE CLINIC OF DOSE [place] [facility] COLLECTIO 61697 [facility]OMEN'S NG, N 9 [facility] CAPILLARY CLINIC OF BLOOD SPECIMEN [facility] GLUCOSE 90827 WOMEN'S NG, TOLERANCE 9 [facility] J TEST GTT CLINIC OF 3 SPECIMENS [facility] US PREG 16535 ALBARRAN, UTERUS 9 DANIA Miguel REAL TIME DIAGNOSTI F/U CCENTER TRNSABDL PER FETUS ECHO 31895 ALBARRAN, 9 DANIA Miguel CARDIOVAS DIAGNOSTI C W/WO CCENTER M-MODE RECORDING 67596 [facility] HERNANDEZ, BIOPHYSIC 9 [facility] J AL CLINIC OF PROFILE W/O [place] NON-STRES [facility] S TESTING [place] PREG 94140 WOMEN'S NG, UTERUS 9 [facility] J REAL TIME CLINIC OF F/U TRNSABDL [place] PER FETUS [place] [address] PATHOLOGY PATHOLOGY SURG 9 & & PATHOLOGY CYTOLOGY CYTOLOGY LAB LAB GROSS&SUGAR ROSCOPIC EXAM COLPOSCOP 52357 WOMEN'S NG, Y CERVIX 9 [facility] UPPER/ADJ CLINIC OF ACENT VAGINA [place] [facility] US PREG 35684 [facility]OMEN'S NG, UTERUS 9 [facility] AFTER 1ST CLINIC OF TRIMEST [place] GESTATION [facility] US PREG 42082 ALBARRAN, UTERUS 9 DANIA R REAL TIME DIAGNOSTI W/IMAGE CCENTER DCMTN TRANSVAG US PREG 64766 [facility] UTERUS 9 JAINISM JAINISM W/DETAIL HOSP HOSP [facility] 1ST GEST[facility] ECHO 52210 CENTRAL CENTRAL TTHRC R-T 9 JAINISM JAINISM 2D HOSP HOSP W/WOM-MOD E COMPL SPEC&COLR D FRAMES V2020 PRINCESS PERRY, PURCHASES 9 [facility] A OPHTH 41098 [facility] [place], MEDICAL 9 [facility] A XM&EVAL COMPRE NEW PT 1/ VST RPR&REFIT 31186 PRINC[facility] [place], G 9 [facility] SPECTACLE S EXCEPT APHAKIA SPHERE V2100 [facility] [place], SINGLE 9 [facility] A VISION PLANO +/- 4.00 [place] P[place] 37887 WOMEN'S NG, UTERUS 9 [facility] [place] J AFTER [facility] GONADOTRO 09764 [facility] K[facility] PIN 9 [facility] CH[facility] [address] [facility] ESTRIOL 9 [facility] INC INC ALPHA-FET 20022 [facility] OPROTEIN 9 [facility] SERUM INC INC URNLS DIP 78976 [facility] 9 [facility] STICK/TAB INC INC LET REAGENT AUTO MICROSCOP Y IADNA 40815 [facility] NEISSERIA 9 [facility] INC INC GONORRHOE AE AMPLIFIED PROBE TQ IADNA 15481 [facility] CHLAMYDIA 9 [facility] INC INC TRACHOMAT [place]REG 59137 [facility] UTERUS 9 [facility] REAL TIME INC INC W/IMAGE DCMTN TRANSVAG Encounters Encounter Start End Date Code Location Performer Type Date OFFICE 78428 MIRTA MIRTA OUTPATIEN 2 2 YASIR YASIR T NEW 30 MINUTES [facility] - 2 2 [facility] INC OFFICE 13360 HERNANDEZ JAIMESE OUTPATIEN 2 2 [facility] 15 MINUTES OFFICE 13987 NG NG OUTPATIEN 2 2 [facility] 15 [facility] - 2 2 [facility] 35957 NG NG [facility] 1 1 [facility] 15 [facility] - 1 1 [facility] 1 [facility] 35350 [facility] NG [facility]PATIEN 1 1 [facility] 15 [place] MINUTES OFFICE 00935 NG NG OUTPATIEN 1 1 [facility] V[facility] 5 MINUTES OFFICE 53133 [facility] OUTPATIEN 1 [facility] 15 [place] MIN[facility] OFFICE 97421 [facility] NG [facility]PAT[facility]EN 1 1 [facility] [place] [facility] - 1 1 [facility] 1 1 [facility] 19639 [facility] 1 1 [facility] [place] [facility] - 1 1 [facility] 68911 [facility]IEN 1 1 [facility] 15 [place] MIN[facility]ES OFFICE 70110 [facility] 1 [facility] T VISIT CARDIOLOG 25 Y CLINIC MINUTES OFFICE 62051 [facility] NG OUTPATIEN 1 1 [facility] 15 [place] MIN[facility]ES OFFICE 37191 [facility] OUTPATIEN 1 1 [facility] 15 [place] MIN[facility] OFFICE 13459 [facility] OUTPATIEN 1 1 [facility] 15 [place] [facility] - 1 1 [facility] 1 1 [facility] 83614 [facility] 1 1 PHYSICIAN POLLY BARAHONA NEW/JOHN E. [facility] PATIENT 60 MIN OFFICE [id number] [facility] OUT[facility]IEN 1 1 [facility] 15 [place] MINUTES OFFICE 82570 WOMEN[facility] NG OUTPATIEN 1 1 [facility] 15 [place] MINUTES OFFICE 56724 [facility], OUTPATIEN 9 9 [facility] T [facility] OF 25 MINUTES [facility] OFFICE 31021 WOMEN'S NG, OUTPATIEN 9 9 [facility] OF 15 MINUTES [facility] VINCENT - 9 9 [facility] VINCENT - 9 9 [facility] OFFICE 53798 WOMEN'S NG[facility] OUTPATIEN 9 9 [facility] OF 15 MINUTES [facility] OFFICE 58437 W[facility]EN[facility] NG, OUTPATIEN 9 9 [facility] OF 15 MINUTES [facility] VINCENT - 9 9 [facility] OFFICE 72731 WOMEN'S NG, OUTPATIEN 9 9 [facility] T [facility] OF 15 MINUTES [facility]ENT - 9 9 [facility] T OFFICE 06979 WOMEN'S NG, OUTPATIEN 9 9 [facility] T [facility]IN[facility] OF 15 MINUTES [facility]INCENT - 9 9 [facility] T OFF[facility] 37097 Dilia JUAREZ OUTPATIEN 9 9 BRENDA Metcalf VISIT PSC 15 MINUTES OFFICE 74705 Dilia JUAREZ OUTPATIEN 9 9 BRENDA Metcalf VISIT P[facility] 15 MINUTES OFFICE 35953 [facility], OUTPATIEN 9 9 [facility] T [facility]IN[facility] OF 15 MINUTES [facility] OFFICE 75472 JUAN CARLOS RANGEL, CONSULTAT 9 9 KAM B KAM B ION NEW/ESTAB PATIENT 60 MIN OFFICE 18273 [facility], OUTPATIEN 9 9 [facility] T [facility]IN[facility] OF 15 MINUTES [facility] OFFICE 69473 Dilia JUAREZ OUTPATIEN 9 9 BRENDA Metcalf VISIT PSC 15 MINUTES OFFICE 64008 [facility], OUTPATIEN 9 9 [facility] T [facility] OF 15 MINUTES [facility] OFFICE 21679 WOMEN'S NG, OUTPATIEN 9 9 [facility] J T VISIT 5 CLINIC OF MINUTES [facility] C[facility]TRAL - 9 9 JAINISM OUTPATIEN [facility]INCENT - 9 9 [facility] OUTPATIEN INC T OFFICE 35326 Dilia JUAREZ OUTPATIEN 9 9 BRENDA Metcalf VISIT PSC 15 MINUTES [facility] - 9 9 [facility] OUTPATIEN [facility]OS[facility] T OFFICE 00779 Dilia JUAREZ OUTPATIEN 9 9 BRENDA Rice T VISIT PSC 15 MINUTES OFFICE 01511 [facility]EN'[facility] NG, OUTPATIEN 9 9 [facility] T V[facility] CLINIC OF 15 MINUTES [facility] OFFICE 17521 WOMEN'S HERNANDEZ OUTPATIEN 9 9 [facility] T VISIT CLINIC OF 15 MINUT[facility] OFFICE 44080 WOMEN'S HERNANDEZ OUTPATIEN 9 9 [facility] T [facility]INIC OF 15 MINUTES [facility]INCENT - 9 9 [facility] OUTPATIEN INC T EMERGENCY 13300 VINCENT 9 9 [facility] DEPARTMEN INC T VISIT HIGH/URGE NT SEVERITY [facility]OSPITAL [facility]INCENT - 9 9 [facility] OUTPATI[facility] T OFFICE 32063 Dilia JUAREZ OUTPATIEN 9 9 BRENDA Rice T VISIT PSC 15 MINUTES
--- OUTSIDE RECORDS SUMMARY | 2016-12-28 20:44 | External Medical Summary Rpt ---
Author Author [employer], [employer] Organization [employer] Address Unknown Phone Unavailable
--- OUTSIDE RECORDS SUMMARY | 2016-12-28 20:44 | External Medical Summary Rpt | CCD ---
Author Author , SELAM Organization SELAM Address Unknown Phone [email or web address] Care Team Providers Care [place] [employer] Supervisor Name Role Phone DANIA ALBARRAN, Unavailable Unavailable DANIA ALBARRAN [facility], Unavailable Unavailable [facility] NG MARISOL, NG Unavailable Unavailable MARISOL NG MARISOL, NG Unavailable Unavailable MARISOL CARLOTA NG J, Unavailable Unavailable TEZ NGK J [facility] Unavailable Unavailable [place], [facility] Unavailable Unavailable [facility], [facility] Unavailable Unavailable LAB, [facility] OF Unavailable Unavailable [facility] OF [facility] SATNAM HUAN, Unavailable Unavailable SATNAM HUAN [facility] Unavailable Unavailable [facility] Unavailable [place], [facility] [place] MIRTA YASIR, Unavailable [...] INC LEO PERRY, Unavailable Unavailable LEO PERRY [facility] Unavailable Unavailable P[facility], [facility], Unavailable Unavailable [facility] Unavailable Unavailable [facility], [facility] JUAN CARLOS, KAM B, Unavailable Unavailable KAM RANGEL B VANI SEXTON, Unavailable Unavailable VANI SEXTON MORAN WIL Unavailable Unavailable [facility], Unavailable Unavailable [facility] Unavailable Unavailable LAB, [facility] Unavailable Unavailable LAB, PATHOLOGY & CYTOLOGY LAB BOB COVARRUBIAS, Unavailable Unavailable GUADALUPE MORALES JR, Unavailable Unavailable GUADALUPE POOL [facility] Unavailable Unavailable [facility] Unavailable Unavailable OF [place], [facility] OF Dilia GALARZA, BRENDA, Unavailable Unavailable A C Purpose Continuity of Care Document - 03-28-2008 through 2016 Problems Code Diagnosis DOS Provider Status V242 ROUTINE 05-24-2011 PATHOLOGY & CYTOLOGY FOLLOW-UP LAB V7231 ROUTINE 05-24-2011 HERNANDEZ DAMON GYNECOLOGIC AL EXAMINATION 462 ACUTE 05-21-2011 MIRTA PHARYNGITIS YASIR 4660 ACUTE 05-21-2011 MIRTA BRONCHITIS YASIR V252 STERILIZATI 04-12-2011 COUNTS INCLUDE 234 BEDS AT THE [facility] ON [facility] 650 NORMAL 04-11-2011 HERNANDEZ MARISOL DELIVERY 39164 OTH&UNS CRD 04-11-2011 HERNANDEZ DAMON ENTANGL W/O COMPRS COMP L&D DELIV V270 OUTCOME OF 04-11-2011 HERNANDEZ DAMON DELIVERY SINGLE LIVEBORN V221 SUPERVISION 04-09-2011 HERNANDEZ DAMON OF OTHER NORMAL 78432 THREATENED 03-29-2011 [facility] PREMATURE [facility] LABOR INC ANTEPARTUM 02235 OTHER 03-29-2011 HARPEL HUBERT THREATENED LABOR, ANTEPARTUM 73553 DECR 03-24-2011 HERNANDEZ MARISOL MOVMNTS MGMT MOTH ANTPRTM COND/COMP 41650 OTHER 03-14-2011 [facility] SPECIFED [facility] COMPLICATIO INC N ANTEPARTUM 7840 HEADACHE 03-14-2011 [facility] INC 5990 URINARY 01-18-2011 [facility] TRACT PHYSICIANS INFECTION LA SITE NOT SPECIFIED 591 HYDRONEPHRO 12-29-2010 [facility] SIS PHYS[facility]IAN GROUP PCC 46432 HEMATURIA 12-29-2010 [facility] UNSPECIFIED PHYSICIAN GROUP PCC V2889 OTHER 12-29-2010 [place] [facility] ASS SCREENING 7851 PALPITATION 12-13-2010 [facility] CARD[facility] CLINIC V283 ENCOUNTER 12-06-2010 WOMEN'S ROUTINE HEALTH SCREEN CLINIC OF MALFORMATIO [place] N ULTRASONIC 42395 CHEST PAIN 11-16-2010 [facility] UNSPECIFIED [facility] INC 7454 VENTRICULAR 11-12-2010 [facility] SEPTAL PHYSICIANS DEFECT GROUP 22786 SHORTNESS 11-12-2010 [facility] OF BREATH [facility] INC V2509 OT GENERAL 11-02-2008 [facility] CNSL&ADVICE CLINIC OF CONTRACEPT [place] [facility]NAGEMENT [facility] 48874 MATERNAL 09-26-2008 WOMEN'S MENTAL D/O HEALTH CLINIC OF COND/COMPLI [place] CATION PLLC 52425 TRANSIENT 09-11-2008 WOMEN'S HYPERTENSIO HEALTH N OF CLINIC OF [place] W/DELIVERY PLL 19068 FIRST-DEGRE 09-11-2008 WOMEN'S E PERINEAL HEALTH LACERATION CLINIC OF WITH [place] DELIVERY [facility] 33799 MILD OR 09-10-2008 WOMEN'S UNSPECIFIED HEALTH CLINIC OF PRE-ECLAMPS [place] IA [facility] ANTEPARTUM 26998 POOR 09-06-2008 WOMEN'S GROWTH MGMT HEALTH MOTH CLINIC OF ANTPR [place] COND/COMP [facility] V220 SUPERVISION 08-31-2008 COMBINED OF NORMAL PHYSICIANS FIRST LAB 1123 CANDIDIASIS 07-26-2008 A Dwayne GUTIERREZ OF SKIN PSC AND NAILS 99195 DIARRHEA 07-26-2008 A Dwayne GUTIERREZ MD PSC 6929 CONTACT 07-12-2008 JUAN CARLOS, DERMATITIS& KAM B OTHER ECZEMA DUE UNSPEC CAUSE 35312 TOXIC 07-12-2008 JUAN CARLOS, EFFECT OF KAM B LATEX 89609 DYSFUNCTION 06-28-2008 A Dwayne MURILLO [facility] EUSTACHIAN TUBE 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-UNS EOC 02325 MATERNAL 06-15-2008 [facility] CONGENITAL SCIENTOLOGIST CV HOSP DISORDERS [facility] V2389 SUPERVISION 06-15-2008 OF OTHER DIAGNOSTICC HIGH-RISK ENTER 60211 SPOTTING 06-08-2008 WOMEN'S COMP HEALTH CLINIC OF ANTEPARTUM [place] COND/COMP [facility] 6160 CERVICITIS 05-25-2008 PATHOLOGY & AND CYTOLOGY ENDOCERVICI LAB TIS 03053 PAP SMER 05-25-2008 WOMEN'S CERV W/LW HEALTH GRADE CLINIC OF [facility] LES V222 05-25-2008 [facility] COUNT INCLUDES THE [facility], [facility] [place] [facility] 18260 PLANTAR 05-24-2008 A Dwayne MACDONALD MD PSC 3970 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[facility] TRICUSPID [facility]ENTOLOG[facility] 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 DISORDERS HOSP 48356 OTH CURRENT 05-18-2008 CENTRAL MAT CONDS SCIENTOLOGIST CLASSIFIABL HOSP E ELSW [facility] 05840 PREMATURE 05-18-2008 [facility] RUPTURE SCIENTOLOGIST [facility] ANTEPARTUM 64743 MATERNAL 05-18-2008 C[facility]AL HYPOTENSION SCIENTOLOGIST SYNDROME HOSP ANTEPARTUM 4619 ACUTE 05-16-2008 A Dwayne GUTIERREZ SINUSITIS, PSC UNSPECIFIED 616 INFLAMMATOR 04-06-2008 [facility] Y DISEASE [facility] OF CERVIX INC VAGINA AND VULVA 6259 UNSPEC 04-06-2008 [facility] W/[facility] GENITAL ORGANS 10550 INFECTIONS 04-06-2008 [facility]ENT OF [facility] H[facility] GENITOURINA INC RY TRACT ANTEPARTUM 9224 CONTUSION 03-28-2008 A Dwayne GUTIERREZ OF GENITAL PSC ORGANS Medications Na ND Rx Da Fi Fi Am Da Di Ph RX Ph St me C No te ll ll ou ys ag ar # ys at rm s nt no ma ic us Or Da si cy ia de te s n re d CA 00 10 10 5 30 30 EA [...] ST 84 KE ti ON SI 62 SC ve AZ 02 20 20 DE E [...] DOS Code Location Performer Comment CYTP C/V 88675 PATHOLOGY PICKLESIM AUTO THIN 2 & ER JR MARCI LYR CYTOLOGY PREPJ SCR LAB MNL RESCR PHYS IAADIADOO 80497 MIRTA MIRTA 2 YASIR YASIR INFLUENZA LIG/TRNSX 79660 HERNANDEZ Yuan FLP 2 MARISOL MARISOL TUBE ABDL/VAG POSTPARTU M SPX ANES IPER 11526 COUNTS INCLUDE 234 BEDS AT THE [facility] JOSE ANTONIO LWR ABD 2 ANESTH ALEKSANDR W/LAPS OF THE TUBAL BLUE LIGATION/ TRANSECT OTH 6639 [facility]ENT KAUR BILATERAL 2 [facility] INC INC DESTRUC/O CCLUSION FALLOPIAN TUBES OTHER 7359 [facility]INCENT KAUR MANUALLY 2 [facility] ASSISTED INC INC DELIVERY VAGINAL 53099 HERNANDEZ NG DELIVERY 2 MARISOL MARISOL ONLY W/POSTPAR DAYAN CARE NEURAXIAL 42497 COUNTS INCLUDE 234 BEDS AT THE [facility] LILIAN MARLA LABOR 2 ANESTH ANALG/ANE OF THE S PLND BLUE VAGINAL DELIVERY CULTURE 81090 [facility]ENT KAUR BACTERIAL 2 [facility] INC INC QUANTTATI VE COLONY COUNT URINE CULTURE 20699 [facility] K[facility]UR BCT 2 [facility] ISOL&PRSM INC INC PTV ID ISOLATE EA URINE OBSERVATI 71130 HARPEL HARPEL ON/INPATI 2 [facility] 55 MINUTES 43182 [facility]ENT KAUR NONSTRESS 2 [facility] TEST INC INC SUSCEPTIB 27860 [facility] KAUR LTY STDY 2 [facility] ANTIMICRB INC INC IAL MICRO/AGA R DILUTJ URNLS DIP 92581 [facility] KAUR 2 [facility] STICK/TAB INC INC LET REAGENT AUTO MICROSCOP Y URNLS DIP 65692 [facility] KAUR 2 [facility] STICK/TAB INC INC LET REAGENT AUTO MICROSCOP Y NONINVASI 63065 VINCENT KAUR VE 2 [facility] EAR/PULSE INC INC OXIMETRY SINGLE DETER THERAPEUT 95961 [facility]INCENT KAUR IC 2 [facility] INJECTION INC INC IV PUSH EACH NEW DRUG 48451 [facility] K[facility]UR NONSTRESS 2 [facility] TEST INC INC INJECTION J2405 V[facility] KAUR 2 [facility] ONDANSETR INC [place] ON HCL [place] [address] [facility] K[facility]UR INFUSION 2 [facility] HYDRATION INC INC INITIAL 31 MIN-1 HOUR 70730 HERNANDEZ NG BIOPHYSIC 2 MARISOL [place] AL PROFILE W/O NON-STRES S TESTING US PREG 29427 HERNANDEZ NG UTERUS 2 MARISOL MAR[place] REAL TIME W/IMAGE DCMTN TRANSVAG DOPPLER 58615 HERNANDEZ NG VELOCIMET 2 MARISOL MARISOL RY UMBILICAL ARTERY 33636 NG NG NONSTRESS 2 MARISOL MAR[place] TEST 43386 NG NG NONSTRESS 2 MAR[facility] MAR[place] TEST 55528 HERNANDEZ NG BIOPHYSIC 2 MAR[place] AL PROFILE W/O NON-STRES S TESTING CUL BACT 34153 COMBINED COMBINED XCPT 2 PHYSICIAN PHYSICIAN URINE S LA S LA BLOOD/STO OL AEROBIC ISOL US PREG 00598 HERNANDEZ NG UTERUS 2 MARISOL MARISOL REAL TIME W/IMAGE DCMTN TRANSVAG DOPPLER 50819 HERNANDEZ NG VELOCIMET 2 MAR[facility] MAR[place] RY UMBILICAL ARTERY 43470 HERNANDEZ NG NONSTRESS 1 MAR[facility] [place] TEST FIBRINOGE 40425 [facility] KAUR N 1 [facility] ACTIVITY INC INC PROTHROMB 04331 [facility] KAUR IN TIME 1 [facility] INC INC 40437 [facility]ENT KAUR NONSTRESS 1 [facility] TEST INC INC OBSERVATI 70633 JERRI WOODSON ON/INPATI 1 KANDICE LAM[facility]ERT [facility] CARE 55 MINUTES BASIC 74393 [facility] KAUR METABOLIC 1 [facility] [place] [address] VINCENT KAUR BLOOD/URI 1 [facility] C ACID INC INC THROMBOPL 51683 [facility] ASTIN 1 [facility] TIME INC INC PARTIAL PLASMA/WH OLE BLOOD CULTURE 38006 [facility] BACTERIAL 1 [facility] INC INC QUANTTATI VE COLONY COUNT URINE FIBRIN 82357 [facility] DGRADJ 1 [facility] PRODUCTS INC INC D-DIMER QUAL/SEMI TOM BLOOD 02782 [facility] KAUR COUNT 1 [facility] COMPLETE INC INC AUTO&AUTO DIFRNTL WBC URNLS DIP 50667 [facility] KAUR 1 [facility] STICK/TAB INC INC LET REAGENT AUTO MICROSCOP Y TRANSFERA 56964 [facility] SE 1 [facility] ASPARTATE INC INC AMINO AST SGOT TRANSFERA 28258 [facility] SE 1 [facility] ALANINE INC INC AMINO ALT SGPT DOPPLER 34767 HERNANDEZ NG VELOCIMET 1 [facility] MAR[place] RY UMBILICAL ARTERY US PREG 97577 HERNANDEZ NG UTERUS 1 [facility] [place] REAL TIME W/IMAGE DCMTN TRANSVAG 37623 HERNANDEZ NG BIOPHYSIC 1 [facility] [place] AL PROFILE W/O NON-STRES S TESTING 67291 HERNANDEZ NG BIOPHYSIC 1 [facility] [place] AL PROFILE W/O NON-STRES S TESTING US PREG 51566 NG NG UTERUS 1 MAR[facility] REAL TIME W/IMAGE DCMTN TRANSVAG DOPPLER 64398 NG NG VELOCIMET 1 [facility] [place] RY UMBILICAL ARTERY US PREG 98152 NG NG UTERUS 1 MARIS[facility] MAR[place] REAL TIME W/IMAGE DCMTN TRANSVAG 96636 NG NG BIOPHYSIC 1 [facility] [place] AL PROFILE W/O NON-STRES S TESTING 35724 NG NG BIOPHYSIC 1 MAR[facility] [place] AL PROFILE W/O NON-STRES S TESTING US PREG 68836 NG NG UTERUS 1 [facility] REAL TIME W/IMAGE DCMTN TRANSVAG DOPPLER 65865 NG NG VELOCIMET 1 MARISOL MARIS[place] RY UMBILICAL ARTERY DOPPLER 01567 NG NG VELOCIMET 1 MARISOL MAR[place] RY UMBILICAL ARTERY US PREG 27609 NG NG UTERUS 1 MARISOL [place] REAL TIME W/IMAGE DCMTN TRANSVAG 06925 NG NG BIOPHYSIC 1 [facility] [place] AL PROFILE W/O NON-STRES S TESTING FTL 95909 [facility] K[facility]UR FIBRONECT 1 [facility] IN INC INC CERVICOVA G SECRETION S SEMI-TOM US PREG 81505 WOMEN'S NG UTERUS 1 [facility] REAL TIME CLINIC OF W/IMAGE [place] DCMTN TRANSVAG DOPPLER 65897 WOMEN'S NG VELOCIMET 1 [facility] RY CLINIC OF UMBILICAL [place] ARTERY 69733 WOMEN'S NG BIOPHYSIC 1 [facility] AL CLINIC OF PROFILE [place] NON-STRES S TESTING 62251 NG NG BIOPHYSIC 1 [facility] AL PROFILE W/O NON-STRES S TESTING DOPPLER 06515 NG GN VELOCIMET 1 [facility] MAR[place] RY UMBILICAL ARTERY US PREG 66271 NG NG UTERUS 1 [facility] REAL TIME W/IMAGE DCMTN TRANSVAG GLUCOSE 23171 NG NG TOLERANCE 1 [facility] MAR[facility] TEST GTT 3 SPECIMENS CULTURE 60654 COMBINED COMBINED BACTERIAL 1 PHYSICIAN PHYSICIAN S LA S LA QUANTTATI VE COLONY COUNT URINE 20434 HERNANDEZ NG BIOPHYSIC 1 [facility] [place] AL PROFILE NON-STRES S TESTING DOPPLER 86418 HERNANDEZ NG VELOCIMET 1 [facility] [place] RY UMBILICAL ARTERY US PREG 98726 HERNANDEZ NG UTERUS 1 [facility] REAL TIME W/IMAGE DCMTN TRANSVAG 23136 WOMEN'S HERNANDEZ NONSTRESS 1 [facility] TEST CLINIC OF [place] US PREG 42136 WOMEN'S HERNANDEZ UTERUS 1 [facility] REAL TIME CLINIC OF W/IMAGE [place] DCMTN TRANSVAG US PREG 21525 WOMEN'S HERNANDEZ UTERUS 1 [facility] REAL TIME CLINIC OF W/IMAGE [place] DCMTN TRANSVAG THERAPEUT 10914 [facility] K[facility] IC 1 [facility] PROPHYLAC INC INC TIC/DX INJECTION SUBQ/IM URNLS DIP 80292 [facility] KAUR 1 [facility] STICK/TAB INC INC LET REAGENT AUTO MICROSCOP Y FTL 31543 V[facility] KAUR FIBRONECT 1 [facility] IN INC INC [place]ERVIC[place] [address] [place] SATNAM RETROPERI 1 MEDICAL HUAN TONEAL IMAGING REAL TIME ASS W/IMAGE COMPLETE 86430 [facility] K[facility]UR NONSTRESS 1 [facility] TEST INC INC OBSERVATI 19011 [facility] HARPEL ON/INPATI 1 PHYSICIAN [facility] PCC C[place] 55 [place] [address] [place] SATNAM 1 MEDICAL HUAN UTERUS IMAGING LIMITED ASS 1/> FETUSES ECG 65177 [facility] ROUTINE 1 ROSENDO MATIAS ECG CARDIOLOG W/LEAST Y CLINIC 12 LDS W/I&R CUL BACT 81699 COMBINED COMBINED XCPT 1 PHYSICIAN PHYSICIAN URINE S LA S LA BLOOD/STO OL AEROBIC ISOL US PREG 74128 WOMEN'S HERNANDEZ UTERUS 1 [facility] AFTER 1ST CLINIC OF TRIMEST [place] GESTATION ECHO 29899 [facility] KAUR TTHRC R-T 1 [facility] 2D INC INC W/WOM-MOD E COMPL SPEC&COLR D XTRNL ECG 75866 [facility] KAUR & 48 HR 1 [facility] RECORDING INC INC ETONOGEST J7307 WOMEN'S NG, REL 9 [facility] CNTRACPT CLINIC OF IMPL SYS INCL IMPL [place] & SPL PLLC THERAPEUT 81693 WOMEN'S NG, IC 9 [facility] PROPHYLAC CLINIC OF TIC/DX INJECTION [place] SUBQ/IM PLLC INSERTION 52764 WOMEN'S NG, 9 [facility] IMPLANTAB CLINIC OF LE CONTRACEP [place] TIVE [facility] [place] 40010 WOMEN'S NG, 9 [facility] TEST CLINIC OF VISUAL COLOR [place] CMPRSN [facility] METHS CYTP C/V 03971 PATHOLOGY PATHOLOGY AUTO THIN 9 & & LYR CYTOLOGY CYTOLOGY PREPJ SCR LAB LAB MNL RESCR PHYS NEURAXIAL 84728 [facility] [place], LABOR 9 ANESTH SHERWIN F ANALG/ANE OF THE S PLND [place] VAGINAL DELIVERY VAGINAL 21163 WOMEN'S NG, DELIVERY 9 [facility] ONLY CLINIC OF W/POSTPAR DAYAN CARE [place] [facility] REPAIR OF 7569 [facility]INCENT KAUR OTHER 9 [facility] CURRENT INC INC OBSTETRIC LACERATIO N INITIAL 74025 WOMEN'S NG, OBSERVATI 9 [facility] ON CLINIC OF CARE/DAY 50 [place] MINUTES [facility] DOPPLER 76629 WOMEN'S HERNANDEZ, VELOCIMET 9 [facility] RY CLINIC OF UMBILICAL ARTERY [place] [facility] 04029 WOMEN'S HERNANDEZ, BIOPHYSIC 9 [facility] AL CLINIC OF PROFILE W/O [place] NON-STRES [facility] [place] [address] WOMEN'S NG, 9 [facility] UTERUS CLINIC OF LIMITED 1/> [place] FETUSES [facility] OBSERVATI 95385 JERRI WOODSON, ON/INPATI 9 [facility] CARE 55 MINUTES 85637 [facility]ENT KAUR NONSTRESS 9 [facility] TEST INC INC CULTURE 54306 [facility]ENT K[facility]UR BACTERIAL 9 [facility] INC INC QUANTTATI VE COLONY COUNT URINE URNLS DIP 07201 [facility] KAUR 9 [facility] STICK/TAB INC INC LET REAGENT AUTO MICROSCOP Y [place] PREG 23239 WOMEN'S NG, UTERUS 9 [facility] REAL TIME CLINIC OF F/U TRNSABDL [place] PER FETUS [facility] DOPPLER 68559 WOMEN'S NG, VELOCIMET 9 [facility] [place] RY CLINIC OF UMBILICAL ARTERY [place] [facility] CUL BACT 03139 COMBINED COMBINED XCPT 9 PHYSICIAN PHYSICIAN URINE S LAB S LAB BLOOD/STO OL AEROBIC ISOL 58409 WOMEN'S NG, BIOPHYSIC 9 [facility] [place] CLINIC OF PROFILE W/O [place] NON-STRES [facility] S TESTING OBSERVATI 18896 JERRI WOODSON, ON/INELISABETH 9 KANDICE LAMBERT [facility] CARE 55 MINUTES URNLS DIP 35794 [facility] KAUR 9 [facility] STICK/TAB INC INC LET REAGENT [place]CROSCOP Y 86250 WOMEN'S NG, NONSTRESS 9 [facility] TEST CLINIC OF [place] [facility] 35341 VINCENT KAUR NONSTRESS 9 [facility] TEST INC INC SMR PRIM 26343 Dilia GUTIERREZ, Dilia SRC WET 9 BRENDA Rice [facility] NFCT AGT CULTURE 38144 [facility] K[facility]UR BACTERIAL 9 [facility] INC INC QUANTTATI VE COLONY COUNT URINE 04999 [facility] KAUR NONSTRESS 9 [facility] TEST INC INC OBSERVATI 74016 BRET THOMPSON/INELISABETH 9 KANDICE [facility] CARE 55 MINUTES URNLS DIP 12263 VINCENT KAUR 9 [facility] STICK/TAB INC INC LET REAGENT AUTO MICROSCOP Y FTL 84472 [facility]INCENT KAUR FIBRONECT 9 [facility] IN INC INC CERVICOVA G SECRETION S SEMI-TOM [place] PREG 13365 WOMEN'S NG, UTERUS 9 [facility] REAL TIME CLINIC OF F/U TRNSABDL [place] PER FETUS [facility] DOPPLER 70572 WOMEN'S NG, VELOCIMET 9 [facility] [place] RY CLINIC OF UMBILICAL ARTERY [place] [facility] 48408 WOMEN'S HERNANDEZ, BIOPHYSIC 9 [facility] AL CLINIC OF PROFILE NON-STRES [place] S TESTING [facility] PERQ TSTS 80962 JUAN CARLOS, JUAN CARLOS, 9 KAM B KAM B SEQL&INCR L RX/BIOLOG IC/VNM IMMT RXN GLUCOSE 31705 WOMEN'S NG, POST 9 [facility] GLUCOSE CLINIC OF DOSE [place] [facility] COLLECTIO 86470 WOMEN'S NG, N 9 [facility] CAPILLARY CLINIC OF BLOOD SPE[facility]IMEN [facility] GLUCOSE 55659 WOMEN'S NG, TOLERANCE 9 [facility] [place] TEST GTT CLINIC OF 3 SPECIMENS [facility] US PREG 46577 ALBARRAN, UTERUS 9 DANIA Miguel REAL TIME DIAGNOSTI F/U CCENTER TRNSABDL PER FETUS ECHO 31811 [place], 9 DANIA Miguel CARDIOVAS DIAGNOSTI C W/WO CCENTER M-MODE RECORDING 58949 WOMEN'S HERNANDEZ, BIOPHYSIC 9 [facility] AL CLINIC OF PROFILE W/O [place] NON-STRES [facility] S TESTING [place] PREG 41113 WOMEN'S NG, UTERUS 9 [facility] [place] REAL TIME CLINIC OF F/U TRNSABDL [place] PER [place]ET[place] [facility] [address] PATHOLOGY PATHOLOGY SURG 9 & & PATHOLOGY CYTOLOGY CYTOLOGY LAB LAB GROSS&SUGAR ROSCOPIC EXAM COLPOSCOP 77678 WOMEN'S NG, Y CERVIX 9 [facility] UPPER/ADJ CLINIC OF ACENT VAGINA [place] [facility] US PREG 71328 WOMEN'S NG, UTERUS 9 [facility] AFTER 1ST CLINIC OF TRIMEST [place] GESTATION [facility] US PREG 05560 ALBARRAN, UTERUS 9 DANIA R REAL TIME DIAGNOSTI W/IMAGE CCENTER DCMTN TRANSVAG US PREG 76494 [facility]ENTRAL CENTRAL UTERUS 9 SCIENTOLOGIST SCIENTOLOGIST W/DETAIL HOSP HOSP SHASTA 1ST GESTATION ECHO 47664 CENTRAL CENTRAL TTHRC R-T 9 SCIENTOLOGIST SCIENTOLOGIST 2D HOSP HOSP W/WOM-MOD E COMPL SPEC&COLR D FRAMES V2020 PRINCESS PERRY, PURCHASES 9 [facility] A OPHTH 58391 PRINCESS [place], MEDICAL 9 [facility] A XM&EVAL COMPRE NEW PT 1/ VST RPR&REFIT 77632 PRINCESS [place], G 9 [facility] A SPECTACLE S EXCEPT APHAKIA SPHERE V2100 PRINCESS [place], SINGLE 9 VISION LEO A VISION PLANO +/- 4.00 PER LENS [place] PREG 01400 WOMEN'S NG, UTERUS 9 [facility] [place] AFTER 1ST CLINIC OF TRIMEST [place] GESTATION [facility] GONADOTRO 77901 VINCENT KAUR PIN 9 [facility] CHORIONIC [place] [address] [facility] ESTRIOL 9 [facility] INC INC ALPHA-FET 10560 [facility] OPROTEIN 9 [facility] SERUM INC INC URNLS DIP 82641 [facility] KAUR 9 [facility] STICK/TAB INC INC LET REAGENT AUTO MICROSCOP Y IADNA 21327 [facility]UR NEISSERIA 9 [facility] INC INC GONORRHOE AE AMPLIFIED PROBE TQ IADNA 89812 [facility] CHLAMYDIA 9 [facility] INC INC TRACHOMAT IS AMPLIFIED [place] PREG 88841 [facility] UTERUS 9 [facility] REAL TIME INC INC W/IMAGE DCMTN TRANSVAG Encounters Encounter Start End Date Code Location Performer Type Date OFFICE 44628 MIRTA MIRTA OUTPATIEN 2 2 [facility] YASIR T [facility] 30 MINUTES [facility] - 2 2 [facility] INPATIENT INC OFFICE 78973 HERNANDEZ JAIMESE OUTPATIEN 2 2 [facility] 15 MINUTES OFFICE 92418 NG NG OUTPATIEN 2 2 [facility] - 2 2 [facility] OUTPATIEN [facility] - 2 2 [facility] OUTPATIEN [facility] OFFICE 47489 NG NG [facility]PATIEN 1 1 [facility] 15 [facility]ES [facility] - 1 1 [facility] - 1 1 [facility] OUTPATIEN [facility] OFFICE 66009 [facility] MIN[facility] OFFICE 67641 NG NG OUTPATIEN 1 1 [facility] 5 MINUT[facility] OFFICE 56983 [facility] [place] MIN[facility] OFFICE 00344 [facility]PATIEN 1 1 [facility] [place] MIN[facility] - 1 1 [facility] - 1 1 [facility] OUTPATIEN [facility] OFFICE 56274 [facility] 1 1 [facility] [place] MIN[facility] - 1 1 [facility] OUTPATIEN [facility] OFFICE 87467 [facility]PAT[facility] 1 1 [facility] 15 [place] MINUTES OFFICE 32151 ST[facility]egor[facility] OUTPATI[facility] 1 1 [facility] T VISIT CARDIOLOG 25 Y CLINIC MINUTES OFFICE 72929 W[facility] OUTPATIEN 1 1 [facility] 15 [place] MINUTES OFFICE 33139 [facility] 1 1 [facility] 15 [place] MINUT[facility] OFFICE 17171 [facility] OUTPATIEN 1 1 [facility] 15 [place] MINUTES [facility] - 1 1 [facility] - 1 1 [facility] OUTPATIEN [facility] OFFICE 84264 [facility] CONSULT[facility] 1 1 [facility] PATIENT 60 MIN OFFICE 95767 [facility] OUTPATIEN 1 1 [facility] 15 [place] MINUT[facility] OFFICE 31031 [facility]PATIEN 1 1 [facility] 15 [place] MINUT[facility] OFFICE 32392 [facility]IEN 9 9 [facility] OF 25 MINUTES [facility] EM[facility] DEPART[facility] OFFICE 86870 [facility] OUTPATIEN 9 9 [facility] OF 15 MINUTES [facility] VINCENT - 9 9 [facility] VINCENT - 9 9 [facility] OUTPATIEN [facility] OFFICE 69728 [facility] OUTPATIEN 9 9 [facility] OF 15 MINUTES [facility] EM[facility] DEPART[facility] OFFICE 63259 [facility] OUTPATIEN 9 9 [facility] OF 15 MINUTES [facility] VINCENT - 9 9 [facility] OUTPATIEN [facility] OFFICE 89652 [facility] OUTPATIEN 9 9 [facility] J T VISIT CLINIC OF 15 MINUTES [facility] - [facility] T OFFICE [id number] WOMEN'S NG, OUTPATIEN 9 9 [facility] T VISIT CLINIC OF 15 MINUTES [facility] - 9 9 [facility] T OFFICE 23031 Dilia JUAREZ OUTPATIEN 9 9 BRENDA Metcalf VISIT [facility] 15 MINUTES OFFICE 10787 Dilia JUAREZ OUTPATIEN 9 9 BRENDA Metcalf VISIT [facility] 15 MINUTES OFFICE 61460 WOMEN'S NG, OUTPATIEN 9 9 [facility] J T VISIT CLINIC OF 15 MINUTES [facility] EMERGENC[facility] DEPARTMENT OFFICE 06817 JUAN CARLOS RANGEL, CONSULTAT 9 9 KAM B KAM B ION NEW/ESTAB PATIENT 60 MIN OFFICE [id number] WOMEN'S NG, OUTPATIEN 9 9 [facility] J T VISIT CLINIC OF 15 MINUTES [facility] EMERGENC[facility] DEPARTMENT OFFICE 23731 Dilia JUAREZ OUTPATIEN 9 9 BRENDA Metcalf VISIT PSC 15 MINUTES OFFICE 01228 WOMEN'S NG, OUTPATIEN 9 9 [facility] J T VISIT CLINIC OF 15 MINUTES [facility] EMERGENC[facility] DEPARTMENT OFFICE 63734 WOMEN'S NG, OUTPATIEN 9 9 [facility] J T VISIT 5 CLINIC OF MINUTES [facility] - 9 9 SCIENTOLOGIST OUTPATIEN [facility] - 9 9 [facility] OUT[facility] INC T OFFICE 15622 Dilia JUAREZ OUTPATIEN 9 9 BRENDA Metcalf VISIT [facility] 15 MINUTES [facility] - 9 9 SCIENTOLOGIST OUTPATIEN HOSP T OFFICE 87471 Dilia JUAREZ OUTPATIEN 9 9 BRENDA Rice T VISIT PSC 15 MINUTES OFFICE 29096 WOMEN'S NG, OUTPATIEN 9 9 [facility] J T VISIT CLINIC OF 15 MINUTES [facility] EMERGENC[facility] DEPARTMENT OFFICE 27131 WOMEN'S HERNANDEZ OUTPATIEN 9 9 [facility] J T VISIT CLINIC OF 15 MINUTES [facility] EMERGENC[facility] DEPART[facility] OFFICE 55531 WOMEN'S HERNANDEZ OUTPATIEN 9 9 [facility] J T VISIT CLINIC OF 15 MINUTES [facility] - 9 9 [facility] OUTPATIEN INC T EMERGENCY [id number] [facility]INCENT 9 9 [facility] DEPARTMEN INC T VISIT HIGH/URGE NT SEVERITY [facility] - 9 9 [facility] OUT[facility] INC T OFFICE 69835 Dilia JUAREZ OUTPATIEN 9 9 BRENDA Rice T VISIT PSC 15 MINUTES
--- OUTSIDE RECORDS SUMMARY | 2016-12-28 20:44 | External Medical Summary Rpt | CCD ---
Demographics Preferred Language Urdu Marital Status Unknown Pentecostal Affiliation Unknown Race Unknown Ethnic Group Unknown Author Author , RITU DOSS Address Unknown Phone Immunization No patient found.
--- OUTSIDE RECORDS SUMMARY | 2016-12-28 20:44 | External Medical Summary Rpt | CCD ---
Demographics Preferred Language Spanish Marital Status Unknown Mormonism Affiliation Unknown Race Unknown Ethnic Group Unknown Author Author , RITU DOSS Address Unknown Phone Immunization No patient found.
== END 2016-12-27 17:39 | disposition home or self-care (01) ==
LOC: UTC 16:44
DX: R07.0 Pain in throat (principal); Z88.0 Allergy status to penicillin